=== PATIENT | male | born 1935 | race Caucasian/White ===

== ENCOUNTER 2022-02-18 13:11 | Emergency (ER) | payer MEDICARE, MEDICAID ==
[~2022-02-18] VITALS: Ht 162.5 cm; Wt 53.1 kg
--- NOTE | 2022-02-18 13:24 | ED Upper Extremity ---
General Chief Complaint: Upper Extremity Stated Complaint: LT SHOULDER PAIN Source: patient Exam Limitations: no limitations History of Present Illness Date Seen by Provider: February 18, 2022 Time Seen by Provider: 13:13 Initial Comments 86-year-old male with no significant past medical history coming in due to left shoulder pain for a couple days, worse this morning. He denies falling or any trauma. Says it is worse with movement and better with rest. The pain is constant, severe, sharp. Has not tried any medicines as of yet. Has never had pain like this before. He is otherwise denying any other acute complaints Allergies and Home Medications Allergies Coded Allergies: No Known Drug Allergies (Unverified , 02/18/22) Patient Home Medication List Home Medication List Reviewed: Yes Review of Systems Constitutional: No chills, No fever EENTM: No blurred vision Respiratory: no symptoms reported Cardiovascular: no symptoms reported Gastrointestinal: no symptoms reported Genitourinary: no symptoms reported Musculoskeletal: joint pain Skin: no symptoms reported Psychiatric/Neurological: No Symptoms Reported All Other Systems Reviewed Negative Unless Noted: Yes Past Dibvkiv-Ozctsi-Xfgibg Hx Patient Social History Tobacco Use?: No Substance use?: No Alcohol Use?: No Past Medical History Surgeries: Yes (right leg orthopedic) Physical Exam Vital Signs Vital Signs - First Documented 02/18/22 13:15 Temp 36.1 Pulse 95 Resp 18 B/P (MAP) 191/91 (124) Pulse Ox 96 O2 Delivery Room Air Capillary Refill : Height, Weight, BMI Height: '" Weight: lbs. oz. kg; BMI Method: General Appearance: WD/WN, no apparent distress HEENT: PERRL/EOMI, normal ENT inspection, pharynx normal Neck: non-tender, full range of motion, supple, normal inspection Cardiovascular: regular rate, rhythm, no edema, no murmur Respiratory: chest non-tender, lungs clear, normal breath sounds, no respiratory distress, no accessory muscle use Gastrointestinal: normal bowel sounds, non tender, soft; No distended, No guarding, No rebound Back: normal inspection, no CVA tenderness, no vertebral tenderness Shoulder: pain (Left shoulder with some old bruising, swelling, tenderness, decreased range of motion actively and passively, normal neurovascular exam distal to the injury), swelling Elbow/Forearm: normal inspection, non-tender, no evidence of injury, normal ROM Wrist: Yes normal inspection, Yes non-tender, Yes no evidence of injury, Yes normal ROM Hand: normal inspection, non-tender, no evidence of injury, normal ROM Neurologic/Tendon: normal sensation, normal motor functions, normal tendon fu nctions Neurologic/Psychiatric: underwriter II-XII nml as tested, no motor/sensory deficits, alert, normal mood/affect, oriented x 3 Skin: normal color, warm/dry Lymphatic: no adenopathy Progress/Results/Core Measures Results/Orders My Orders Orders - BEBA WHITT MD Hydrocodone/Apap 5/325 Tablet (Lortab 5 (02/18/22 13:30) Shoulder 3 View Left (02/18/22 13:24) Medications Given in ED Current Medications Medications Dose Ordered Sig/Amalia Route Start Time Stop Time Status Last Admin Dose Admin Acetaminophen/ Hydrocodone Bitart 1 ea ONCE ONCE PO 02/18/22 13:30 02/18/22 13:31 DC 02/18/22 13:32 1 EA Vital Signs/I&O 02/18/22 13:15 Temp 36.1 Pulse 95 Resp 18 B/P (MAP) 191/91 (124) Pulse Ox 96 O2 Delivery Room Air Progress Progress Note : Progress Note 86-year-old male with above history coming in due to nontraumatic left shoulder pain. ABCs were intact and vitals were stable on presentation. His left shoulder did appear slightly deformed with a high riding humeral head on exam. Decreased range of motion especially with significant pain. Normal neurovascular exam. X-ray with chronic and severe arthritic changes in the glenohumeral joint as well as the AC joint with high riding humeral head consistent with rotator cuff tear which is chronic. I will refer him to Ortho to discuss options such as injections or replacement. I believe he is stable for discharge with outpatient follow-up. He was sent home with strict return precautions Diagnostic Imaging Diagonstic Imaging: Xray (left shoulder) Comments [facility] [place], [place] NAME: OBEDSATISHGIRISH [facility] REC#: [id number] PT STATUS: REG ER : 1935 PHYSICIAN: BEBA WHITT MD ADMIT DATE: 02/18/22/ER FS Signed Date of Exam:02/18/22 SHOULDER 3 VIEW LEFT INDICATION: Pain. Shoulder deformity. No reported injury. FINDINGS: The left shoulder demonstrates a high riding humeral head suggesting a chronic rotator cuff tear. There is advanced arthritic change and ossification about the acromioclavicular joint. There appears to be a large osteophyte extending off of the inferior aspect of the glenoid. The bones are osteopenic. There is no identified fracture. The visualized lungs demonstrate no acute process. IMPRESSION: Severe left acromioclavicular joint and glenohumeral joint arthritic changes with a high riding humeral head compatible with chronic rotator cuff tear. There are no findings of dislocation or acute fracture. Dictated by: Dictated on workstation # [id number] Dict: 02/18/22 1403 Trans: 02/18/22 1410 [facility] [id number] Interpreted by: REINALDO LAYTON MD Electronically signed by: REINALDO LAYTON MD 02/18/22 1410 Departure Impression Primary Impression: Shoulder arthritis Additional Impression: Rotator cuff tear Qualified Codes: M75.122 - Complete rotator cuff tear or rupture of left shoulder, not specified as traumatic Disposition: 01 HOME, SELF-CARE Condition: Stable Departure-Patient Inst. Decision time for Depature: 14:16 Referrals: NO,LOCAL PHYSICIAN (PCP/Family) Primary Care Physician Patient Instructions: Rotator Cuff Injury Add. Discharge Instructions: You have severe arthritis in your shoulder which is caused a tear in her rotator cuff. I want you to follow-up with Donal Cruz here in [facility] who is a bone specialist. He can discuss giving injections versus referring you for a shoulder replacement. Shoulder replacement is the only definitive management for what you have. Take Tylenol for pain and you can also ice it or heat, whichever feels better. Scripts Oxycodone HCl (Oxycodone HCl) 5 Mg Tablet 5 MG PO HS PRN for PAIN-SEVERE (8-10) for 3 Days, #3 TAB Prov: BEBA WHITT MD 02/18/22 Acetaminophen (Tylenol Extra Strength) 500 Mg Tablet 1000 MG PO Q6H for 7 Days, #56 TAB Prov: BEBA WHITT MD 02/18/22 BEBA WHITT MD February 18, 2022 13:24
[2022-02-18] MEDS ORDERED: HYDROcodone/APAP 5 MG/325 MG (LORTAB) TAB PO ONE (13:30)
--- NOTE | 2022-02-18 14:09 | Diagnostic Imaging Report ---
INDICATION: Pain. Shoulder deformity. No reported injury. FINDINGS: The left shoulder demonstrates a high riding humeral head suggesting a chronic rotator cuff tear. There is advanced arthritic change and ossification about the acromioclavicular joint. There appears to be a large osteophyte extending off of the inferior aspect of the glenoid. The bones are osteopenic. There is no identified fracture. The visualized lungs demonstrate no acute process. IMPRESSION: Severe left acromioclavicular joint and glenohumeral joint arthritic changes with a high riding humeral head compatible with chronic rotator cuff tear. There are no findings of dislocation or acute fracture. Dictated by: Dictated on workstation # [id number]
[2022-02-18] MEDS ORDERED: ACET-2267 PO (14:20)
[2022-02-18] MEDS ORDERED: OXYC5TAB PO (14:20)
[2022-02-18 14:25] VITALS: BP 187/85
== END 2022-02-18 14:25 | disposition home or self-care (01) ==
LOC: ER FS 13:13
DX: M75.122 Complete rotator cuff tear or rupture of left shoulder, not specified as traumatic (principal); M19.012 Primary osteoarthritis, left shoulder
CPT/HCPCS: 73030; 99282; A4565

== ENCOUNTER 2022-09-26 15:48 | Emergency (ER) | payer MEDICARE, MEDICAID ==
[~2022-09-26 15:48] MED LIST: ACET-2267 PO; OXYC5TAB PO
--- NOTE | 2022-09-26 16:00 | ED Syncope ---
General Stated Complaint: SYNCOPAL EPISODE Source of Information: Patient, EMS Exam Limitations: No Limitations History of Present Illness Date Seen by Provider: Sep 26, 2022 Time Seen by Provider: 15:50 Initial Comments 87-year-old male presents via EMS for a syncopal episode. He resides at a local assisted/nursing facility and got up to walk with his walker to get some exercise and had a syncopal episode. Staff heard him fall down and by the time they got to him he was awake. The patient himself states he remembers the event and had no preceding chest pain, shortness of breath, palpitations, dizziness lightheadedness nausea vomiting or diaphoresis. 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 No dysarthria headaches or changes in vision. He feels back to normal at present. His vital signs were stable during EMS transport and his blood sugar was in the 80s. Allergies and Home Medications Allergies Coded Allergies: No Known Drug Allergies (Unverified , 02/18/22) Patient Home Medication List Home Medication List Reviewed: Yes Acetaminophen (Tylenol Extra Strength) 500 Mg Tablet, 1,000 MG PO Q6H Prescribed by: BEBA WHITT on 02/18/22 1420 Oxycodone HCl (Oxycodone HCl) 5 Mg Tablet, 5 MG PO HS PRN for PAIN-SEVERE (8-10) Prescribed by: BEBA WHITT on 02/18/22 1421 Review of Systems Constitutional: no symptoms reported EENTM: no symptoms reported Respiratory: no symptoms reported Cardiovascular: syncope Gastrointestinal: no symptoms reported Genitourinary: no symptoms reported Musculoskeletal: no symptoms reported Skin: no symptoms reported Psychiatric/Neurological: No Symptoms Reported Past Hldtlul-Otgzsa-Jnrqjp Hx Patient Social History Tobacco Use?: No Use of E-Cig and/or Vaping dev: No Substance use?: No Alcohol Use?: No Immunizations Up To Date First/Initial COVID19 Vaccinat: Not currently vaccinated Past Medical History Surgery/Hospitalization HX: Orthopedic surgery to right leg. Surgeries: Yes (right leg orthopedic) Family Medical History Reviewed Nursing Family Hx No Pertinent Family Hx Physical Exam Vital Signs Vital Signs - First Documented 09/26/22 15:51 Temp 36.6 Pulse 75 Resp 18 B/P (MAP) 146/73 (97) Pulse Ox 98 O2 Delivery Room Air Capillary Refill : Height, Weight, BMI Height: '" Weight: lbs. oz. kg; 20.00 BMI Method: General Appearance: No Apparent Distress, WD/WN HEENT: PERRL/EOMI, TMs Normal, Normal ENT Inspection, Pharynx Normal Neck: Full Range of Motion, Normal Inspection, Non Tender, Supple Cardiovascular: Regular Rate, Rhythm, No Edema, No Gallop, No JVD, No Murmur, Normal Peripheral Pulses Respiratory: Chest Non Tender, Lungs Clear, Normal Breath Sounds, No Accessory Muscle Use, No Respiratory Distress Gastrointestinal: Normal Bowel Sounds, No Organomegaly, No Pulsatile Mass, Non Tender, Soft Back: Normal Inspection, No Vertebral Tenderness Extremities: Normal Capillary Refill, Normal Inspection, Normal Range of Motion, Non Tender, No Calf Tenderness, No Pedal Edema Neurologic/Psychiatric: Alert, Oriented x3, Normal Mood/Affect, operations support specialist II-XII Norm as Tested, Other (Mild left-sided arm and leg weakness.) Cranial Nerves: Other (Patient is hard of hearing at baseline) Coordination/Gait: Normal Finger to Nose Motor/Sensory: No Sensory Deficit Skin: Normal Color, Warm/Dry Progress/Results/Core Measures Results/Orders Lab Results Laboratory Tests Test 09/26/22 15:55 Range/Units White Blood Count 10.8 4.3-11.0 10^3/uL Red Blood Count 3.02 L 4.30-5.52 10^6/uL Hemoglobin 10.2 L 13.3-17.7 g/dL Hematocrit 30 L 40-54 % Mean Corpuscular Volume 100 H 80-99 fL Mean Corpuscular Hemoglobin 34 25-34 pg Mean Corpuscular Hemoglobin Concent 34 32-36 g/dL Red Cell Distribution Width 14.4 10.0-14.5 % Platelet Count 272 130-400 10^3/uL Mean Platelet Volume 10.7 9.0-12.2 fL Immature Granulocyte % (Auto) 1 % Neutrophils (%) (Auto) 62 42-75 % Lymphocytes (%) (Auto) 19 12-44 % Monocytes (%) (Auto) 15 H 0-12 % Eosinophils (%) (Auto) 2 0-10 % Basophils (%) (Auto) 1 0-10 % Neutrophils # (Auto) 6.7 1.8-7.8 10^3/uL Lymphocytes # (Auto) 2.0 1.0-4.0 10^3/uL Monocytes # (Auto) 1.6 H 0.0-1.0 10^3/uL Eosinophils # (Auto) 0.3 0.0-0.3 10^3/uL Basophils # (Auto) 0.1 0.0-0.1 10^3/uL Immature Granulocyte # (Auto) 0.1 0.0-0.1 10^3/uL Sodium Level 136 135-145 MMOL/L Potassium Level 3.9 3.6-5.0 MMOL/L Chloride Level 101 98-107 MMOL/L Carbon Dioxide Level 25 21-32 MMOL/L Anion Gap 10 5-14 MMOL/L Blood Urea Nitrogen 28 H 7-18 MG/DL Creatinine 0.87 0.60-1.30 MG/DL Estimat Glomerular Filtration Rate 84 BUN/Creatinine Ratio 32 Glucose Level 102 70-105 MG/DL Calcium Level 8.6 8.5-10.1 MG/DL Corrected Calcium 8.6 8.5-10.1 MG/DL Magnesium Level 2.2 1.6-2.4 MG/DL Total Bilirubin 0.2 0.1-1.0 MG/DL Aspartate Amino Transf (AST/SGOT) 19 5-34 U/L Alanine Aminotransferase (ALT/SGPT) 12 0-55 U/L Alkaline Phosphatase 141 H 40-136 U/L Total Protein 7.0 6.4-8.2 GM/DL Albumin 4.0 3.2-4.5 GM/DL My Orders Orders - LAZARUS KATZ DO Cbc With Automated Diff (09/26/22 15:55) Magnesium (09/26/22 15:55) Comprehensive Metabolic Panel (09/26/22 15:55) Ekg Tracing (09/26/22 15:55) Vital Signs/I&O 09/26/22 15:51 Temp 36.6 Pulse 75 Resp 18 B/P (MAP) 146/73 (97) Pulse Ox 98 O2 Delivery Room Air EKG : Comment Sinus rhythm with first-degree AV block with [place] interval of 223. Normal intervals otherwise. Specifically QTC and QRS are normal. Left axis deviation. Right bundle branch block. No ST or T wave abnormalities. No ectopy. No STEMI Departure Communication (Admissions) The patient is hemodynamically stable and completely asymptomatic at the time of arrival. This is a brief syncopal episode without any focal neurologic deficits or evidence of emergent medical condition at this time. There is no evidence for dysrhythmia, hypoglycemia or other electrolyte abnormality. He does not have any new neurologic deficits to make me think that this was related to a stroke. No evidence for infectious cause, dehydration. He is discharged home in stable condition with supportive care. He does have close supervision at the nursing facility where he resides Impression Primary Impression: Syncope Qualified Codes: R55 - Syncope and collapse Disposition: 01 HOME, SELF-CARE Condition: Stable Departure-Patient Inst. Referrals: NO,LOCAL PHYSICIAN (PCP/Family) Primary Care Physician Patient Instructions: Syncope (Fainting) (DC) Add. Discharge Instructions: You were seen in the emergency department after passing out. There is no indication that this was from your heart, lungs or other emergency condition. Your electrolytes, blood counts are all normal and your exam is reassuring. Ple ase follow-up with your primary doctor for any nonemergent needs. Return to the emergency department for any severe concerns, specifically if you have chest pain, changes in vision or severe headache, new weakness in your arms or legs or if your symptoms change in any way concerning to you LAZARUS KATZ DO Sep 26, 2022 16:00
[2022-09-26 16:04] LABS: BASOPHILS # (AUTO) 0.1 10^3/uL (0.0-0.1); BASOPHILS % (AUTO) 1 % (0-10); EOSINOPHILS # (AUTO) 0.3 10^3/uL (0.0-0.3); EOSINOPHILS % (AUTO) 2 % (0-10); HEMATOCRIT 30 % (40-54); HEMOGLOBIN 10.2 g/dL (13.3-17.7); LYMPHOCYTES % (AUTO) 19 % (12-44); MEAN CORPUSCULAR HEMOGLOBIN 34 pg (25-34); MEAN CORPUSCULAR HGB CONC 34 g/dL (32-36); MEAN CORPUSCULAR VOLUME 100 fL (80-99); MEAN PLATELET VOLUME 10.7 fL (9.0-12.2); MONOCYTES # (AUTO) 1.6 10^3/uL (0.0-1.0); MONOCYTES % (AUTO) 15 % (0-12); NEUTROPHILS # (AUTO) 6.7 10^3/uL (1.8-7.8); NEUTROPHILS % (AUTO) 62 % (42-75); PLATELET COUNT 272 10^3/uL (130-400); WHITE BLOOD COUNT 10.8 10^3/uL (4.3-11.0)
[2022-09-26 16:25] LABS: BILIRUBIN,TOTAL 0.2 MG/DL (0.1-1.0); CALCIUM 8.6 MG/DL (8.5-10.1); CREATININE SERUM 0.87 MG/DL (0.60-1.30); MAGNESIUM 2.2 MG/DL (1.6-2.4); POTASSIUM 3.9 MMOL/L (3.6-5.0)
[2022-09-26 16:55] VITALS: BP 145/73
== END 2022-09-26 16:55 | disposition home or self-care (01) ==
LOC: EDUNIT# 15:48 → ER FS 15:49
DX: R55 Syncope and collapse (principal); Z28.310 Unvaccinated for COVID-19
CPT/HCPCS: 36415; 80053; 83735; 85025; 93005

== ENCOUNTER 2023-04-08 10:48 | Inpatient (IN) | payer MEDICARE, MEDICAID ==
[~2023-04-08] VITALS: Ht 162.5 cm; Wt 49.7 kg
--- NOTE | 2023-04-08 11:16 | ED Cardiac General ---
History of Present Illness General Chief Complaint: General Problems/Pain Stated Complaint: DIZZINESS; SYNCOPAL EPISODE History of Present Illness Date Seen by Provider: Apr 08, 2023 Time Seen by Provider: 11:00 Initial Comments 88-year-old male with PMH of CVA few years ago without any obvious resident deficits, not on any medications except for vitamins, is here with complaints of syncope which has been going on intermittently for the past few weeks. In the past 1 week the number of episodes of syncope has been more frequent, with the very last 1 being today morning. Patient describes it as feeling lightheaded and then blacking out for a few seconds, and this can occur whether he is sitting down or standing up. Patient's sister has accompanied him to the ER, and reports that patient only eats 1 meal a day and does not drink much liquids at all. Patient is hard of hearing and has not brought his hearing aid with him. In the ER patient does not feel lightheaded or dizzy. Patient is able to answer all questions and follow commands without any difficulty, and also able to give a good history. Denies chest pain, palpitations, shortness of breath, weakness, confusion, headache, blurry vision, injuries, nausea and vomiting, abdominal pain. Patient denies any cardiac issues in the past. Allergies and Home Medications Allergies Coded Allergies: No Known Drug Allergies (Unverified , 02/18/22) Patient Home Medication List Home Medication List Reviewed: Yes Acetaminophen (Tylenol Extra Strength) 500 Mg Tablet, 1,000 MG PO Q6H Prescribed by: BEBA WHITT on 02/18/22 1420 Oxycodone HCl (Oxycodone HCl) 5 Mg Tablet, 5 MG PO HS PRN for PAIN-SEVERE (8-10) Prescribed by: BEBA WHITT on 02/18/22 1421 Review of Systems Review of Systems Constitutional: see HPI, dizziness EENTM: No Symptoms Reported Respiratory: No Symptoms Reported Cardiovascular: See HPI, Lightheadedness, Syncope Gastrointestinal: No Symptoms Reported Genitourinary: No Symptoms Reported Musculoskeletal: no symptoms reported Skin: no symptoms reported Psychiatric/Neurological: No Symptoms Reported Endocrine: No Symptoms Reported Hematologic/Lymphatic: No Symptoms Reported Past Mmvwoud-Rlqsse-Zmmpjq Hx Immunizations Up To Date First/Initial COVID19 Vaccinat: Not currently vaccinated Second COVID19 Vaccination Faizan: Not currently vaccinated Third COVID19 Vaccination Date: Not currently vaccinated Past Medical History Surgery/Hospitalization HX: Orthopedic surgery to right leg; CVA Surgeries: Yes (right leg orthopedic) Family Medical History No Pertinent Family Hx Physical Exam Vital Signs Vital Signs - First Documented 04/08/23 11:25 Temp 36.4 Pulse 36 Resp 16 B/P (MAP) 138/46 (76) Pulse Ox 99 O2 Delivery Room Air Capillary Refill : Height, Weight, BMI Height: '" Weight: lbs. oz. kg; 20.00 BMI Method: General Appearance: No Apparent Distress, WD/WN HEENT: PERRL/EOMI Neck: Full Range of Motion, Normal Inspection Respiratory: Chest Non Tender, Lungs Clear, Normal Breath Sounds, No Accessory Muscle Use Cardiovascular: No Edema, Bradycardia Gastrointestinal: Normal Bowel Sounds, Non Tender, Soft Extremity: Normal Inspection, Normal Range of Motion Neurologic/Psychiatric: Alert, Oriented x3, No Motor/Sensory Deficits, Normal Mood/Affect, health care coordinator II-XII Norm as Tested Skin: Normal Color Progress/Results/Core Measures Results/Orders Lab Results Laboratory Tests Test 04/08/23 11:02 04/08/23 11:12 Range/Units Urine Color YELLOW Urine Clarity CLEAR Urine pH 6.5 5-9 Urine Specific Sandy <=1.005 1.016-1.022 Urine Protein TRACE H NEGATIVE Urine Glucose (UA) NEGATIVE NEGATIVE Urine Ketones NEGATIVE NEGATIVE Urine Nitrite NEGATIVE NEGATIVE Urine Bilirubin NEGATIVE NEGATIVE Urine Urobilinogen 0.2 < = 1.0 MG/DL Urine Leukocyte Esterase NEGATIVE NEGATIVE Urine RBC (Auto) NEGATIVE NEGATIVE Urine RBC 0-2 /HPF Urine WBC 10-25 H /HPF Urine Squamous Epithelial Cells 2-5 /HPF Urine Crystals NONE /LPF Urine Bacteria FEW H /HPF Urine Casts PRESENT /LPF Urine Hyaline Casts RARE /LPF Urine Mucus SMALL H /LPF Urine Culture Indicated YES White Blood Count 12.3 H 4.3-11.0 10^3/uL Red Blood Count 3.31 L 4.30-5.52 10^6/uL Hemoglobin 11.2 L 13.3-17.7 g/dL Hematocrit 34 L 40-54 % Mean Corpuscular Volume 102 H 80-99 fL Mean Corpuscular Hemoglobin 34 25-34 pg Mean Corpuscular Hemoglobin Concent 33 32-36 g/dL Red Cell Distribution Width 14.6 H 10.0-14.5 % Platelet Count 249 130-400 10^3/uL Mean Platelet Volume 11.3 9.0-12.2 fL Immature Granulocyte % (Auto) 1 % Neutrophils (%) (Auto) 83 H 42-75 % Lymphocytes (%) (Auto) 10 L 12-44 % Monocytes (%) (Auto) 5 0-12 % Eosinophils (%) (Auto) 0 0-10 % Basophils (%) (Auto) 1 0-10 % Neutrophils # (Auto) 10.2 H 1.8-7.8 10^3/uL Lymphocytes # (Auto) 1.2 1.0-4.0 10^3/uL Monocytes # (Auto) 0.6 0.0-1.0 10^3/uL Eosinophils # (Auto) 0.0 0.0-0.3 10^3/uL Basophils # (Auto) 0.2 H 0.0-0.1 10^3/uL Immature Granulocyte # (Auto) 0.1 0.0-0.1 10^3/uL Prothrombin Time 14.0 12.2-14.7 SEC INR Comment 1.0 0.8-1.4 Activated Partial Thromboplast Time 26 24-35 SEC D-Dimer 1.80 H 0.00-0.49 UG/ML Sodium Level 134 L 135-145 MMOL/L Potassium Level 4.3 3.6-5.0 MMOL/L Chloride Level 100 98-107 MMOL/L Carbon Dioxide Level 21 21-32 MMOL/L Anion Gap 13 5-14 MMOL/L Blood Urea Nitrogen 17 7-18 MG/DL Creatinine 0.91 0.60-1.30 MG/DL Estimat Glomerular Filtration Rate 81 BUN/Creatinine Ratio 19 Glucose Level 136 H 70-105 MG/DL Calcium Level 9.3 8.5-10.1 MG/DL Corrected Calcium 9.2 8.5-10.1 MG/DL Magnesium Level 2.1 1.6-2.4 MG/DL Total Bilirubin 0.5 0.1-1.0 MG/DL Aspartate Amino Transf (AST/SGOT) 20 5-34 U/L Alanine Aminotransferase (ALT/SGPT) 12 0-55 U/L Alkaline Phosphatase 116 40-136 U/L Troponin I < 0.30 <0.30 NG/ML Pro-B-Type Natriuretic Peptide 729.2 H <450.0 PG/ML Total Protein 7.1 6.4-8.2 GM/DL Albumin 4.1 3.2-4.5 GM/DL My Orders Orders - MANFRED CAMPOS MD Chest 1 View Ap/Pa Only (04/08/23 11:16) Ekg Tracing (04/08/23 11:17) Cbc With Automated Diff (04/08/23 11:17) Comprehensive Metabolic Panel (04/08/23 11:17) Fibrin Degradation Products (04/08/23 11:17) Magnesium (04/08/23 11:17) Protime With Inr (04/08/23 11:17) Partial Thromboplastin Time (04/08/23 11:17) Ua Culture If Indicated (04/08/23 11:17) Probnp Fs (04/08/23 11:17) Troponin I Fs (04/08/23 11:17) Ed Iv/Invasive Line Start (04/08/23 11:20) Ns Iv 1000 Ml (Sodium Chloride 0.9%) (04/08/23 11:30) Urine Culture (04/08/23 11:02) Ct Angio Chest W (04/08/23 11:35) Ct Head Wo (04/08/23 11:35) Iohexol Injection (Omnipaque 350 Mg/Ml 1 (04/08/23 11:45) Received Contrast (Hold Metformin- Contr (04/08/23 11:45) Ns (Ivpb) (Sodium Chloride 0.9% Ivpb Bag (04/08/23 11:45) Ed Admission (Communication) (04/08/23 11:52) Atropine Inj 1 Mg Syringe (Atropine Inj (04/08/23 12:00) Atropine Injection (Atropine Injection) (04/08/23 11:59) Medications Given in ED Current Medications Medications Dose Ordered Sig/Amalia Route Start Time Stop Time Status Last Admin Dose Admin Atropine Sulfate 0.5 mg ONCE ONCE IV 04/08/23 12:00 04/08/23 12:15 DC 04/08/23 12:02 0.5 MG Iohexol 100 ml ONCE ONCE IV 04/08/23 11:45 04/08/23 11:46 DC 04/08/23 12:00 80 ML Sodium Chloride 100 ml ONCE ONCE IV 04/08/23 11:45 04/08/23 11:46 DC 04/08/23 12:00 100 ML Vital Signs/I&O 04/08/23 11:25 Temp 36.4 Pulse 36 Resp 16 B/P (MAP) 138/46 (76) Pulse Ox 99 O2 Delivery Room Air Progress Progress Note : Progress Note 1. THIRD DEGREE HEART BLOCK CAUSING SYNCOPE: - CT HEAD: No acute findings - CXR: Nodular density overlying the right midlung, potentially related to pulmonary nodule versus overlying soft tissues. Recommend CT of the chest for further evaluation. - EKrd degree heart block - CBC: White count is borderline at 12.3, with no obvious sources of infection -CMP & UA: unremarkable -Troponin undetectable - NS IVF -Patient has remained asymptomatic in the ER, and is AO x3, answering all questions and following all commands, without any neurological deficits. - Discussed with hospitalist and cardiology consult via phone and will admit to [facility] cardiac step down for admission. Cardiology recommendation of trial dose of Atropine 0.5mg given in ER, which didn't change the heart rate. 2. ELEVATED D-DIMER:PULMONARY NODULE - D-dimer is 1.80 - CTA CHEST: Negative for pulmonary emboli. Solid pulmonary nodule in the right upper lobe measuring up to 0.7 cm. There is also a nonsolid pulmonary nodule in the right upper lobe measuring up to 1.5 cm which could be infectious/inflammatory. No lymphadenopathy. Recommend followup with chest CT in one month. Initial ECG Impression Date: Apr 08, 2023 Initial ECG Impression Time: 11:10 Initial ECG Rate: 35 Initial ECG Rhythm: S.Rich Initial ECG Impression: Sinus Bradycardia, 3rd Degree AV Block Initial ECG Comparisson: No Previous ECG Available Diagnostic Imaging Diagonstic Imaging: Xray, CT Plain Films/CT/US/NM/MRI: chest, head Comments [facility], [place] NAME: GIRISH CANO Daniel [facility] REC#: [id number] PT STATUS: REG ER : 1935 PHYSICIAN: MANFRED CAMPOS MD ADMIT DATE: 04/08/23/ER FS Draft Date of Exam:04/08/23 CT ANGIO CHEST W PROCEDURE: CT angiography of the chest with contrast. TECHNIQUE: Multiple contiguous axial images were obtained through the chest after uneventful bolus administration of intravenous contrast. 3D reconstructed CTA MIP acquisitions were also performed. Auto Exposure Controls were utilized during the CT exam to meet ALARA standards for radiation dose reduction. INDICATION: Syncope. Elevated D-dimer. Bradycardia. COMPARISON: Chest radiograph 04/08/2023. FINDINGS: Examination mildly limited by motion. No pulmonary artery filling defects. Borderline heart size. No pericardial effusion. No mediastinal, hilar or axillary lymphadenopathy. Pulmonary nodule right upper lobe measuring up to 0.7 cm. There is also a nonsolid nodule measuring up to 1.5 cm. No pleural effusion or pneumothorax. No endobronchial lesions. No acute osseous findings. Calcified granulomas in the spleen. IMPRESSION: 1. No pulmonary emboli. 2. Solid pulmonary nodule in the right upper lobe measuring up to 0.7 cm. There is also a nonsolid pulmonary nodule in the right upper lobe measuring up to 1.5 cm which could be infectious/inflammatory. No lymphadenopathy. Recommend followup with chest CT in one month. Dictated on workstation # [id number] Dict: 04/08/23 1205 Trans: 04/08/[address] [facility] [id number] Interpreted by: KEMAL RAMOS MD Electronically signed by: [facility] [place] NAME: GIRISH CANO [facility] REC#: [id number] PT STATUS: REG ER : 1935 PHYSICIAN: MANFRED CAMPOS MD ADMIT DATE: 04/08/23/ER FS Draft Date of Exam:04/08/23 CHEST 1 VIEW AP/PA ONLY INDICATION: Bradycardia COMPARISON: None available TECHNIQUE: Single radiograph of the chest dated 04/08/2023. FINDINGS: The cardiac silhouette is within normal limits in size. No significant pulmonary vascular congestion. Background senescent changes of the lungs are identified. Nodular density within the peripheral right midlung is present. No significant pleural effusion. No pneumothorax. Scattered osseous degenerative changes. No acute osseous abnormality. Calcifications within the aortic arch. IMPRESSION: Nodular density overlying the right midlung, potentially related to pulmonary nodule versus overlying soft tissues. Recommend CT of the chest for further evaluation. At the time of examination, a CT of the chest has been performed. Additional findings as described above without additional superimposed acute cardiopulmonary abnormality. Dictated on workstation # [id number] Dict: 04/08/23 1208 Trans: 04/08/237 CVB [id number] Interpreted by: VICTOR MANUEL SHULTZ MD Electronically signed by: NAME: GIRISH CANO [facility] REC#: [id number] PT STATUS: REG ER : 1935 PHYSICIAN: MANFRED CAMPOS MD ADMIT DATE: 04/08/23/ER FS Draft Date of Exam:04/08/23 CT HEAD WO PROCEDURE: CT head without contrast. TECHNIQUE: Multiple contiguous axial images were obtained through the brain without the use of intravenous contrast. Auto Exposure Controls were utilized during the CT exam to meet ALARA standards for radiation dose reduction. INDICATION: Syncope. Bradycardia. COMPARISON: None. FINDINGS: Moderate to advanced generalized parenchymal volume loss. No intracranial hemorrhage, mass effect, hydrocephalus or extra-axial fluid collections. No CT evidence of a territorial infarction. Osseous structures are intact. Opacification and osteitis of the left maxillary sinus. Mastoids are clear. Intracranial vascular calcifications. IMPRESSION: 1. No acute intracranial CT findings. 2. Chronic left maxillary sinusitis. Dictated on workstation # [id number] Dict: 04/08/23 1202 Trans: 04/08/23 1212 CVB [id number] Interpreted by: KEMAL RAMOS MD Electronically signed by: Departure Communication (Admissions) Time/Spoke to Admitting Phy: 11:[address] Eaton, and will admit to cardiac stepdown. Time/Spoke to Consulting Phy: 11:[address] García, and will give a dose of atropine 0.5 mg to see if it makes a difference. Patient is asymptomatic in the ER. Impression Primary Impression: Third degree heart block Additional Impressions: Syncope Qualified Codes: R55 - Syncope and collapse Elevated d-dimer Disposition: 30 STILL A PATIENT Condition: Stable Admissions Decision to Admit Reason: Admit from ER (General) Decision to Admit/Date: Apr 08, 2023 Time/Decision to Admit Time: 11:10 Transfer Method of Transfer: EMS Departure-Patient Inst. Referrals: NO,LOCAL PHYSICIAN (PCP/Family) Primary Care Physician MANFRED CAMPOS MD Apr 08, 2023 11:16
[2023-04-08 11:23] LABS: BASOPHILS # (AUTO) 0.2 10^3/uL (0.0-0.1); BASOPHILS % (AUTO) 1 % (0-10); EOSINOPHILS % (AUTO) 0 % (0-10); HEMATOCRIT 34 % (40-54); HEMOGLOBIN 11.2 g/dL (13.3-17.7); LYMPHOCYTES # (AUTO) 1.2 10^3/uL (1.0-4.0); LYMPHOCYTES % (AUTO) 10 % (12-44); MEAN CORPUSCULAR HEMOGLOBIN 34 pg (25-34); MEAN CORPUSCULAR HGB CONC 33 g/dL (32-36); MEAN CORPUSCULAR VOLUME 102 fL (80-99); MEAN PLATELET VOLUME 11.3 fL (9.0-12.2); MONOCYTES # (AUTO) 0.6 10^3/uL (0.0-1.0); MONOCYTES % (AUTO) 5 % (0-12); NEUTROPHILS # (AUTO) 10.2 10^3/uL (1.8-7.8); NEUTROPHILS % (AUTO) 83 % (42-75); PLATELET COUNT 249 10^3/uL (130-400); WHITE BLOOD COUNT 12.3 10^3/uL (4.3-11.0)
[2023-04-08 11:24] LABS: BILIRUBIN,URINE NEGATIVE (NEGATIVE); CLARITY,URINE CLEAR; COLOR,URINE YELLOW; GLUCOSE, URINE (UA) NEGATIVE (NEGATIVE); KETONES,URINE NEGATIVE (NEGATIVE); LEUKOCYTE ESTERASE ,URINE NEGATIVE (NEGATIVE); NITRITE,URINE NEGATIVE (NEGATIVE); PH,URINE 6.5 (5-9); PROTEIN,URINE TRACE (NEGATIVE)
[2023-04-08 11:25] LABS: BACTERIA,URINE FEW /HPF; RBC,URINE 0-2 /HPF
[2023-04-08 11:26] LABS: HYALINE CASTS, URINE RARE /LPF
[2023-04-08] MEDS ORDERED: NS IV 1000 ML 1,000 ML IV SCH ×2 (11:30→19:00)
[2023-04-08 11:32] LABS: FIBRIN DEGRADATION PRODUCTS 1.8 UG/ML (0.00-0.49)
[2023-04-08 11:34] LABS: ALANINE AMINOTRANSFERASE 12 U/L (0-55); ALBUMIN 4.1 GM/DL (3.2-4.5); ALKALINE PHOSPHATASE 116 U/L (40-136); BILIRUBIN,TOTAL 0.5 MG/DL (0.1-1.0); BUN/CREATININE RATIO 19; CALCIUM 9.3 MG/DL (8.5-10.1); CARBON DIOXIDE 21 MMOL/L (21-32); CHLORIDE 100 MMOL/L (98-107); CREATININE SERUM 0.91 MG/DL (0.60-1.30); GFR ESTIMATED 81; GLUCOSE 136 MG/DL (70-105); MAGNESIUM 2.1 MG/DL (1.6-2.4); POTASSIUM 4.3 MMOL/L (3.6-5.0); SODIUM 134 MMOL/L (135-145); TOTAL PROTEIN 7.1 GM/DL (6.4-8.2)
[2023-04-08] MEDS ORDERED: NS 100 ML (IVPB) BAG IV ONE (11:45)
[2023-04-08] MEDS ORDERED: IOHEXOL 350 MG/ML 100 ML (OMNIPAQUE 350) VIAL IV ONE (11:45)
[2023-04-08] MEDS ORDERED: HOLD METFORMIN - RECEIVED CONTRAST 20 ML VIAL IV SCH (11:45)
[2023-04-08] MEDS ORDERED: ATROPINE INJ 0.4 MG/ML SDV ONE (11:59)
[2023-04-08] MEDS ORDERED: ATROPINE INJECTION 1 MG/10 ML SYR (ABBOTT) IV ONE (12:00)
--- NOTE | 2023-04-08 12:12 | Diagnostic Imaging Report ---
PROCEDURE: CT head without contrast. TECHNIQUE: Multiple contiguous axial images were obtained through the brain without the use of intravenous contrast. Auto Exposure Controls were utilized during the CT exam to meet ALARA standards for radiation dose reduction. INDICATION: Syncope. Bradycardia. COMPARISON: None. FINDINGS: Moderate to advanced generalized parenchymal volume loss. No intracranial hemorrhage, mass effect, hydrocephalus or extra-axial fluid collections. No CT evidence of a territorial infarction. Osseous structures are intact. Opacification and osteitis of the left maxillary sinus. Mastoids are clear. Intracranial vascular calcifications. IMPRESSION: 1. No acute intracranial CT findings. 2. Chronic left maxillary sinusitis. Dictated by: Dictated on workstation # [id number]
--- NOTE | 2023-04-08 12:17 | Diagnostic Imaging Report ---
INDICATION: Bradycardia COMPARISON: None available TECHNIQUE: Single radiograph of the chest dated 04/08/2023. FINDINGS: The cardiac silhouette is within normal limits in size. No significant pulmonary vascular congestion. Background senescent changes of the lungs are identified. Nodular density within the peripheral right midlung is present. No significant pleural effusion. No pneumothorax. Scattered osseous degenerative changes. No acute osseous abnormality. Calcifications within the aortic arch. IMPRESSION: Nodular density overlying the right midlung, potentially related to pulmonary nodule versus overlying soft tissues. Recommend CT of the chest for further evaluation. At the time of examination, a CT of the chest has been performed. Additional findings as described above without additional superimposed acute cardiopulmonary abnormality. Dictated by: Dictated on workstation # [id number]
--- NOTE | 2023-04-08 12:19 | Diagnostic Imaging Report ---
PROCEDURE: CT angiography of the chest with contrast. TECHNIQUE: Multiple contiguous axial images were obtained through the chest after uneventful bolus administration of intravenous contrast. 3D reconstructed CTA MIP acquisitions were also performed. Auto Exposure Controls were utilized during the CT exam to meet ALARA standards for radiation dose reduction. INDICATION: Syncope. Elevated D-dimer. Bradycardia. COMPARISON: Chest radiograph 04/08/2023. FINDINGS: Examination mildly limited by motion. No pulmonary artery filling defects. Borderline heart size. No pericardial effusion. No mediastinal, hilar or axillary lymphadenopathy. Pulmonary nodule right upper lobe measuring up to 0.7 cm. There is also a nonsolid nodule measuring up to 1.5 cm. No pleural effusion or pneumothorax. No endobronchial lesions. No acute osseous findings. Calcified granulomas in the spleen. IMPRESSION: 1. No pulmonary emboli. 2. Solid pulmonary nodule in the right upper lobe measuring up to 0.7 cm. There is also a nonsolid pulmonary nodule in the right upper lobe measuring up to 1.5 cm which could be infectious/inflammatory. No lymphadenopathy. Recommend followup with chest CT in one month. Dictated by: Dictated on workstation # [id number]
[2023-04-08 13:15] VITALS: BP 98/37
[2023-04-08] MEDS ORDERED: MELATONIN 3 MG TABLET PO PRN (13:30)
[2023-04-08] MEDS ORDERED: ACETAMINOPHEN 325 MG TABLET PO PRN ×2 (13:30→19:00)
[2023-04-08] MEDS ORDERED: ONDANSETRON 4 MG/2 ML (SDV) Z0FRAN IV PRN (13:30)
[2023-04-08] MEDS ORDERED: polyethylene glycoL POWDER 17 GM (MIRALAX) PACK PO PRN (13:30)
[2023-04-08] MEDS ORDERED: ANTACID SUSP 30 ML UDC (MYLANTA) PO PRN (13:30)
--- NOTE | 2023-04-08 14:58 | Tele-ICU Consult ---
History of Present Illness History of Present Illness Date Seen by Provider: Apr 08, 2023 Time Seen by Provider: 14:58 Date of Admission History of Present Illness (Tele-ICU Physician , consultation as per request of PCP Service provided via interactive audio and video telecomWorkstreamer E-CARE system to a patient admitted to ICU bed in [facility]. Available chart/ vitals / labs / Images reviewed H&P is from ER notes Patient's information available about PMH, Shx, Fhx allergy reviewed inEMR. ROS as per chart and RN report Now in ICU, hemodynamically stable Video assessment done using teleICU camera, rest of exam as per RN Discussed with RN. Hospital course: (04/08) 88M Admitted for complete heart block/syncope. Trial dose of atropine did not work in ER. Elevated Ddimer-CTA chest NEG for PE. CTH: NEG except chronic left maxillary sinusitis A/P Syncopy - due to arrhythmia - CTH - no bleed 3rd degree heart block - HR @ 20s - maintaing good BP ,asymptomatic AO x3, no neurological deficits - cards consulted Elevated Ddimer- -CTA chest NEG for PE. Mild leukocytosis - U A neg and cxr - no evidence of infection RUL pulm nodulles - w/up as PCP Lines : peripg , (Central Line Necessity Reviewed) Mercado: OG: Nutrition: Analgesia: Anxiety/ delirium VTE Prophylaxis: Stress Ulcer Prophylaxis: Plans in collaboration with bedside consultants and IM MDs. Discussed with RN to reach out if any questions or concerns A total of _10 minutes of critical care time was devoted to this patient today, required to treat and/or prevent further deterioration of critical care condition ( as above ) . I am remotely monitoring this patient from another state. I am unable to do the bedside exam, and history/physical and pertinent information is taken from other notes in the computer and bedside staff. . Allergies and Home Medications Allergies Coded Allergies: No Known Drug Allergies (Unverified , 02/18/22) Home Medications Acetaminophen 500 Mg Tablet, 1,000 MG PO Q6H Prescribed by: BEBA WHITT on 02/18/22 1420 Oxycodone HCl 5 Mg Tablet, 5 MG PO HS PRN for PAIN-SEVERE (8-10) Prescribed by: BEBA WHITT on 02/18/22 1421 Past Medical/Social/Family Hx Patient Social History Tobacco Use?: No Use of E-Cig and/or Vaping dev: No Substance use?: No Alcohol Use?: No Pt stated abuse/neglect: No Immunizations Up To Date First/Initial COVID19 Vaccinat: Not currently vaccinated Second COVID19 Vaccination Faizan: Not currently vaccinated Current Status Advance Directives: No Advance Directive Location: Family to bring in copy Communicates: Verbally Primary Language: Citizen Of [place] Preferred Spoken Language: Citizen Of [place] Is interpretation needed?: No Implanted or Applied Medical D: None Review of Systems Constitutional: other Focused Exam Height, Weight, BMI Height: '" Weight: lbs. oz. kg; 18.85 BMI Method: Exam Exam Patient acknowledged, consented, and participated in this virtual visit which was conducted using real time audio/video Vital Signs Date Time Temp Pulse Resp B/P (MAP) Pulse Ox O2 Delivery O2 Flow Rate FiO2 04/08/23 14:00 24 96/50 (65) 100 Room Air 04/08/23 13:50 24 16 101/51 (68) 98 Room Air 04/08/23 13:39 25 04/08/23 13:15 36.0 27 16 98/37 (57) 96 Room Air 04/08/23 12:19 36.4 27 16 95/34 100 Room Air 04/08/23 11:25 36.4 36 16 138/46 (76) 99 Room Air Height & Weight Height: '" Weight: lbs. oz. kg; 18.85 BMI Method: General Appearance: No Apparent Distress, WD/WN, Other HEENT: PERRL/EOMI Neck: Full Range of Motion, Normal Inspection Respiratory: Chest Non Tender, Lungs Clear, Normal Breath Sounds, No Accessory Muscle Use Cardiovascular: No Edema, Bradycardia Capillary Refill: Less Than 3 Seconds Extremity: Normal Inspection, Normal Range of Motion Neurologic/Psychiatric: Alert, Oriented x3, No Motor/Sensory Deficits, Normal Mood/Affect, head of sales promotion II-XII Norm as Tested Skin: Normal Color Results Lab Laboratory Tests 04/08/23 11:12 Assessment/Plan Assessment/Plan 1 EULALIO HERNANDEZ MD Apr 08, 2023 14:58
[2023-04-08 15:31] VITALS: BP 96/50
--- NOTE | 2023-04-08 15:35 | Consultation-Cardiology ---
HPI-Cardiology Cardiology Consultation: Date of Consultation 04/08/23 Time Seen by a Provider: 15:00 Date of Admission 04/08/23 Attending Physician Nikos Avila DO Admitting Physician Admitting Physician: Alda Damian MD Attending Physician: Alda Damian MD Consulting Physician NICHOLAS FENG MD, MA, FACP, FACC, FSCAI, CCDS Physician requesting Card consult: Dr Damian HPI: Chief Complaint: Reason for Card consult: Complete Heart Block 88 yo man who has been experiencing near-syncope for several days/weeks and was brought to the ER at [facility] by his sister today after a similar episode earlier today. Diagnosed with CHB and sent to this hosp for further eval and treatment. He denies cp or palp or shortness of breath or leg swelling. He denies n/v/d. Lives by himself. Denies fever or chills. Review of Systems-Cardiology Review of Systems Constitutional: malaise, tiredness; No weight loss, No weight gain Eyes: No vision change Ears/Nose/Throat: No ear discharge, No nasal drainage, No recent hearing loss Respiratory: As described under HPI Cardiovascular: As described under HPI Gastrointestinal: As described under HPI Genitourinary: No dysuria, No hematuria Musculoskeletal: back pain (chronic) Skin: No rash, No ulcerations Psychiatric/Neurological: As described under HPI, focal weakness (chronic weakness of leg, more on the R) Hematologic: No bleeding abnormalities LPE-Vtznuw-Zkgvtf Hx Patient Social History Alcohol Use?: No Pt feels they are or have been: No Past Medical History PMH As described under Assessment. Family Medical History Family Medical History: He does not report fam h/o early CAD or SCD Allergies and Home Medications Allergies Coded Allergies: No Known Drug Allergies (Unverified , 02/18/22) Patient Home Medication List Home Medication List Reviewed: Yes Acetaminophen (Tylenol Extra Strength) 500 Mg Tablet, 1,000 MG PO Q6H Prescribed by: BEBA WHITT on 02/18/22 1420 Oxycodone HCl (Oxycodone HCl) 5 Mg Tablet, 5 MG PO HS PRN for PAIN-SEVERE (8-10) Prescribed by: BEBA WHITT on 02/18/22 1421 Physical Exam-Cardiology Physical Exam Vital Signs/I&O 04/08/23 04/08/23 04/08/23 04/08/23 11:25 12:19 13:15 13:39 Temp 36.4 36.4 36.0 Pulse 36 27 27 25 Resp 16 16 16 B/P (MAP) 138/46 (76) 95/34 98/37 (57) Pulse Ox 99 100 96 O2 Delivery Room Air Room Air Room Air 04/08/23 04/08/23 04/08/23 13:50 14:00 15:00 Pulse 24 24 26 Resp 16 B/P (MAP) 101/51 (68) 96/50 (65) 104/84 (91) Pulse Ox 98 100 91 O2 Delivery Room Air Room Air Room Air Capillary Refill : Less Than 3 Seconds Constitutional: AAO x 3, well-developed, well-nourished HEENT: EOMI, hearing is well preserved; No xanthelasmas are seen Neck: carotid pulses are 2 + bilaterally, with good upstrokes Respiratory: No accessory muscle use; chest expansion is symmetric, chest is bilaterally symmetric, other (fair, bilat air entry) Cardiovascular: regular rate-rhythm, bradycardia, S1 and S2, systolic murmur (soft EMORY at card base) Gastrointestinal: No tender; soft; No guarding, No rebound; audible bowel sounds Extremities: No clubbing, No cyanosis, No significant edema Neurologic/Psychiatric: oriented x 3, other (weakness of legs, more on the L; walker by bedside) Skin: No rash on exposed areas, No ulcerations on exposed areas Data Review Labs Laboratory Tests 04/08/23 11:02: Urine Color YELLOW, Urine Clarity CLEAR, Urine pH 6.5, Urine Specific [place] <=1.005, Urine Protein TRACEH, Urine Glucose (UA) NEGATIVE, Urine Ketones NEGATIVE, Urine Nitrite NEGATIVE, Urine Bilirubin NEGATIVE, Urine Urobilinogen 0.2, Urine Leukocyte Esterase NEGATIVE, Urine RBC (Auto) NEGATIVE, Urine RBC 0- 2, Urine WBC 10-25H, Urine Squamous Epithelial Cells 2-5, Urine Crystals NONE, Urine Bacteria FEWH, Urine Casts PRESENT, Urine Hyaline Casts RARE, Urine Mucus SMALLH, Urine Culture Indicated YES 04/08/23 11:12: White Blood Count 12.3H, Red Blood Count 3.31L, Hemoglobin 11.2L, Hematocrit 34L , Mean Corpuscular Volume 102H, Mean Corpuscular Hemoglobin 34, Mean Corpuscular Hemoglobin Concent 33, Red Cell Distribution Width 14.6H, Platelet Count 249, Mean Platelet Volume 11.3, Immature Granulocyte % (Auto) 1, Neutrophils (%) (Auto) 83H, Lymphocytes (%) (Auto) 10L, Monocytes (%) (Auto) 5, Eosinophils (%) (Auto) 0, Basophils (%) (Auto) 1, Neutrophils # (Auto) 10.2H, Lymphocytes # (Auto) 1.2, Monocytes # (Auto) 0.6, Eosinophils # (Auto) 0.0, Basophils # (Auto) 0.2H, Immature Granulocyte # (Auto) 0.1, Prothrombin Time 14.0, INR Comment 1.0, Activated Partial Thromboplast Time 26, D-Dimer 1.80H, Sodium Level 134L, Potassium Level 4.3, Chloride Level 100, Carbon Dioxide Level 21, Anion Gap 13, Blood Urea Nitrogen 17, Creatinine 0.91, Estimat Glomerular Filtration Rate 81, BUN/Creatinine Ratio 19, Glucose Level 136H, Calcium Level 9.3, Corrected Calcium 9.2, Magnesium Level 2.1, Total Bilirubin 0.5, Aspartate Amino Transf (AST/SGOT) 20, Alanine Aminotransferase (ALT/SGPT) 12, Alkaline Phosphatase 116, Troponin I < 0.30, Pro-B-Type Natriuretic Peptide 729.2H, Total Protein 7.1, Albumin 4.1 Laboratory Tests 04/08/23 11:12 A/P-Cardiology Assessment/Admission Diagnosis Complete heart block, associated with near-syncope H/o polio and remote CVA with continuing bilat leg weakness that is more marked on the L side ?UTI Discussion and Recomendations * Pacemaker advised due to profound, symptomatic bradycardia due to complete heart block in the absence of any rate-lowering agents * I spoke at length and in detail with him and his sister regarding the indications, procedure, risks, benefits, potential complications, and alternatives of permanent pacemaker implantation. He understands all issues and wishes to proceed. Arrangements are being made * Management of chronic weakness, limited ambulation, and possible UTI is with the Hospitalist service Clinical Quality Measures AMI/AHF: ASA po Prior to arrival: NICHOLAS Calloway MD [facility] CCDS Apr 08, 2023 15:35
[2023-04-08] MEDS: NS IV 1000 ML 1,000 ML IV SCH ×2 (16:01→21:46)
[2023-04-08] MEDS ORDERED: MIDAZOLAM 5 MG/5 ML (VERSED) VIAL ONE ×2 (16:11→17:19)
[2023-04-08] MEDS ORDERED: fentaNYL INJ 100 MCG/2 ML AMP ONE ×2 (16:11→17:19)
[2023-04-08] MEDS ORDERED: LIDOCAINE 1% INJ 20 ML VIAL ONE (16:11)
[2023-04-08] MEDS ORDERED: HEParin (CATH LAB) 1,000 ML IV ONE (16:11)
[2023-04-08] MEDS ORDERED: NS IV 1000 ML 2,000 ML ONE (16:11)
[2023-04-08] MEDS ORDERED: ceFAZolin INJECTION 1,000 MG ONE (16:15)
[2023-04-08] MEDS ORDERED: RT-ALBUTEROL SULF 2.5 MG/3 ML PRE-MIX VIAL INH SCH (18:00)
[2023-04-08] MEDS ORDERED: oxyCODONE/APAP 5/325MG (PERCOCET 5) TABLET PO PRN (19:00)
[2023-04-08] MEDS ORDERED: PATIENT MAY USE OWN MEDS, ALL PO SCH (19:00)
--- NOTE | 2023-04-08 19:26 | Diagnostic Imaging Report ---
EXAMINATION: Chest (PA and lateral). CLINICAL INDICATION: 88-year-old male, pacemaker placement. COMPARISON: CT chest April 08, 2023. FINDINGS: There is a left-sided cardiac assist device with leads. Heart size and mediastinal contours are grossly unremarkable. There are aortic calcifications. There is no identified pneumothorax. There is mild atelectasis in the left lower lobe. Right upper lobe pulmonary nodule seen on prior CT chest is not well seen or evaluated radiographically. There is advanced bilateral glenohumeral arthritis. Both humeral heads are superiorly subluxed suggesting chronic full-thickness rotator cuff tendon tears. IMPRESSION: Left-sided cardiac assist device and leads without interval acute cardiopulmonary abnormality. Dictated by: Dictated on workstation # [id number]
[2023-04-08] MEDS: ceFAZolin INJECTION 1,000 MG in NS (IVPB) 50 ML IV SCH (21:45)
[2023-04-08] MEDS ORDERED: RT-ALBUTEROL SULF 2.5 MG/3 ML PRE-MIX VIAL INH PRN (22:45)
--- NOTE | 2023-04-09 02:33 | OPERATIVE REPORT ---
DATE OF SERVICE: 04/08/2023 PREOPERATIVE DIAGNOSIS: Intermittent complete heart block, associated with syncope. POSTOPERATIVE DIAGNOSIS: Intermittent complete heart block, associated with syncope. PROCEDURE: Permanent dual-chamber pacemaker implantation. ESTIMATED BLOOD LOSS: Less than 20 mL. The patient is an 88-year-old gentleman who was hospitalized with near syncope and found to have intermittent complete heart block. This is in the absence of any rate controlling agents. Dual chamber pacemaker implantation was carried out after having obtained informed consent. [facility] The left prepectoral area was prepared and draped in the usual sterile fashion. 1% lidocaine used for local anesthesia. Modified Seldinger technique was used to advance 2 guidewires into the left subclavian vein and the tips were placed in the right atrium. Sharp and blunt dissection was then used to make a pacemaker pocket. Good hemostasis was assured. The pocket was packed with gauze soaked in saline. The guidewires were used to advance sheaths and the wires were removed. The sheaths were used to advance leads and the sheaths were removed. All lead manipulation was carried out under fluoroscopy. These are active fixation leads. The ventricular lead was tested at several spots and placed close to the right ventricular apex and actively fixed. The right atrial lead was tested for several spots and fixed close to the right atrial appendage. This also, is an active fixation lead. Good capture and sensing thresholds were obtained. There was no diaphragmatic stimulation at maximum output. The gauze was removed from the pocket after the leads had been sutured to the prepectoral fascia using sleeves and 0 Ethibond. The pocket was irrigated with an antibiotic solution. The leads were attached to a dual chamber pacemaker. The pacemaker and the ends of the leads were placed in a Tyrx pouch and the apparatus was placed in the pacemaker pocket and the pocket was closed in 2 layers using 3.0 Vicryl. Through the device, P waves are measured at 2.4 millivolts and R waves are measured at 2.8 millivolts. Right atrial pacing threshold is 475 ohms. Right ventricular pacing threshold was 570 ohms. Right atrial capture threshold was 1.5 volts at 0.4 milliseconds. Right ventricular pressure threshold is 0.5 volts at 0.4 milliseconds. The pacemaker is in the DDDR mode. Mode switch is on. Lower rate is 60 beats per minute. Upper tracking rate is 130 beats per minute. The patient tolerated the procedure well. Job ID: [id number] DocumentID: [id number] Dictated Date: 04/08/2023 19:03:56 Office Rep Date: 04/09/2023 02:31:00 Dictated By: NICHOLAS FENG MD; STEPHEN; FACP; FACC;
[2023-04-09 05:25] LABS: HEMATOCRIT 30 % (40-54); HEMOGLOBIN 9.5 g/dL (13.3-17.7); MEAN CORPUSCULAR HEMOGLOBIN 34 pg (25-34); MEAN CORPUSCULAR HGB CONC 32 g/dL (32-36); MEAN CORPUSCULAR VOLUME 105 fL (80-99); MEAN PLATELET VOLUME 11.2 fL (9.0-12.2); PLATELET COUNT 190 10^3/uL (130-400); WHITE BLOOD COUNT 15.3 10^3/uL (4.3-11.0)
[2023-04-09 05:37] LABS: POTASSIUM 3.6 MMOL/L (3.6-5.0)
[2023-04-09 05:38] LABS: CALCIUM 7.7 MG/DL (8.5-10.1)
[2023-04-09 05:39] LABS: TOTAL PROTEIN 5.4 GM/DL (6.4-8.2)
[2023-04-09 05:41] LABS: BILIRUBIN,TOTAL 0.4 MG/DL (0.1-1.0)
[2023-04-09 05:43] LABS: CREATININE SERUM 0.78 MG/DL (0.60-1.30)
[2023-04-09] MEDS: NS IV 1000 ML 1,000 ML IV SCH (05:53)
[2023-04-09] MEDS: ceFAZolin INJECTION 1,000 MG in NS (IVPB) 50 ML IV SCH ×2 (06:15→14:03)
[2023-04-09] MEDS: TAMSULOSIN 0.4 MG (FLOMAX) CAP PO SCH ×2 (09:50→18:37)
--- NOTE | 2023-04-09 10:05 | Occupational Therapy Eval ---
OT Evaluation-General/PLF Medical Diagnosis Admission Date Apr 08, 2023 at 13:34 Medical Diagnosis: syncope Onset Date: Apr 08, 2023 Therapy Diagnosis Therapy Diagnosis: weakness Precautions Precautions/Isolations: Standard Precautions Comments LUE PPM restrictions Referral Referral Reason: Activity Tolerance, Self Care, Evaluation/Treatment, Strengthening/ROM Medical History Additional Medical History 88-year-old male with PMH of CVA few years ago without any obvious resident deficits, not on any medications except for vitamins, is here with complaints of syncope which has been going on intermittently for the past few weeks. In the past 1 week the number of episodes of syncope has been more frequent, with the very last 1 being today morning. Patient describes it as feeling lightheaded and then blacking out for a few seconds, and this can occur whether he is sitting down or standing up. Patient's sister has accompanied him to the ER, and reports that patient only eats 1 meal a day and does not drink much liquids at all. Patient is hard of hearing and has not brought his hearing aid with him. In the ER patient does not feel lightheaded or dizzy. Patient is able to answer all questions and follow commands without any difficulty, and also able to give a good history. Current History Foot drop, toe deformity Reviewed History: Yes Social History Home: Single Level Current Living Status: Alone Entry Into Home: Stairs With Railing Steps Into Home: 2 ADL-Prior Level of Function SCALE: Activities may be completed with or without assistive devices. 3-Fhvqkgziul-zcgwbyd completes the activity by him/herself with no assistance from a helper. 5-Set-up or Clean-up Assistance-helper sets up or cleans up; patient completes activity. Vaughn assists only prior to or following the activity. 4-Supervision or Touching Assistance-helper provides verbal cues and/or touching/steadying and/or contact guard assistance as patient completes activity. Assistance may be provided throughout the activity or intermittently. 3-Partial/Moderate Assistance-helper does LESS THAN HALF the effort. Vaughn lifts, holds or supports trunk or limbs, but provides less than half the effort. 2-Substantial/Maximal Assistance-helper does MORE THAN HALF the effort. Vaughn lifts or holds trunk or limbs and provides more than half the effort. 6-Gpmkndykt-torlaj does ALL the effort. Patient does none of the effort to complete the activity. Or, the assistance of 2 or more helpers is required for the patient to complete the activity. If activity was not attempted, code reason: 7-Patient Refused. 9-Not Applicable-not attempted and the patient did not perform the activity before the current illness, exacerbation or injury. 10-Not Attempted due to Environmental Limitations-(lack of equipment, weather restraints, etc.). 88-Not Attempted due to Medical Conditions or Safety Concerns. Self Care: Independent Functional Cognition: Independent DME/Equipment Comments built up shoes OT Current Status Subjective Agreeable to OT, difficulty w/ LUE ROM and WB, primary Left hand dominant Mental Status/Objective Patient Orientation: Person, Place, Time, Situation Attachments: Mercado Catheter, Oxygen, Telemetry Current Glasses/Contacts: Yes Hand Dominance: Left Upper Extremity ROM LUE ROM restricted w/ sling Upper Extremity Coordination Difficulty managing tasks w/o use of LUE and W/O bearing weight Upper Extremity Strength RUE WFLS, LUE NT ADL-Treatment Eating (QC): 5 (OT cut food and opened container) Oral Hygiene (QC): 5 Shower/Bathe Self (QC): 7 Upper Body Dressing (QC): 3 Lower Body Dressing (QC): 3 (difficulty w/ lifting LEs in pant legs and managiong fasteners) On/Off Footwear (QC): 1 Toileting Hygiene (QC): 4 Education OT Patient Education: Correct positioning, Exercise program, Instructions don/doff splint/brace, Modified ADL techniques, Progress toward Goal/Update tx plan, Purpose of tx/functional activities, Reviewed precautions, Rehab process, Safety issues, Transfer techniques, Use of adapted equipment Teaching Recipient: Patient Teaching Methods: Demonstration, Discussion Response to Teaching: Verbalize Understanding, Reinforcement Needed OT Molder Bench Goals Group Home Goals Eating (QC): 6 Oral Hygiene (QC): 6 Toileting Hygiene (QC): 5 Shower/Bathe Self (QC): 5 Upper Body Dressing (QC): 5 Lower Body Dressing (QC): 5 On/Off Footwear (QC): 5 1=Demonstrate adherence to instructed precautions during ADL tasks. 2=Patient will verbalize/demonstrate understanding of assistive devices/modifications for ADL. 3=Patient will improve strength/tolerance for activity to enable patient to perform ADL's. OT Education/Plan Problem List/Assessment Assessment: Decreased Activ Tolerance, Decreased Safety Aware, Decreased UE Strength, Impaired Coordination, Impaired Funct Balance, Impaired Self-Care Skills, Restricted Funct UE ROM Discharge Recommendations Plan/Recommendations: Continue POC Treatment Plan/Plan of Care Treatment,Training & Education: Yes Patient would benefit from OT for education, treatment and training to promote independence in ADL's, mobility, safety and/or upper extremity function for AD L's. Plan of Care: ADL Retraining, Functional Mobility, Group Exercise/Act as Ind, Orthotic Fitting/Training, UE Funct Exercise/Act Treatment Duration: Apr 14, 2023 Frequency: 3 times per week Estimated Hrs Per Day: .25 hour per day Agreement: Yes Rehab Potential: Good Time Start Time: 08:10 Stop Time: 08:25 DATE: Apr 09, 2023 Total Time Billed (hr/min): 15 Billed Treatment Time EVM 15 min JABARI LORD OT Apr 09, 2023 10:05
--- NOTE | 2023-04-09 10:25 | Physical Therapy Evaluation ---
PT Evaluation-General Medical Diagnosis Admission Date Apr 08, 2023 at 13:34 Medical Diagnosis: syncope/third degree heart block Onset Date: Apr 08, 2023 Therapy Diagnosis Therapy Diagnosis: debility/weakness Precautions Precautions/Isolations: Fall Prevention, Standard Precautions Referral Physician: Nati Reason for Referral: Evaluation/Treatment Medical History Pertinent Medical History: CVA Current History ER secondary to dizziness/syncope Reviewed History: Yes Social History Home: Single Level Current Living Status: Alone Prior Prior Level of Function SCALE: Activities may be completed with or without assistive devices. 7-Vuvnpzqtmi-mwqbpld completes the activity by him/herself with no assistance from a helper. 5-Set-up or Clean-up Assistance-helper sets up or cleans up; patient completes activity. Tell assists only prior to or following the activity. 4-Supervision or Touching Assistance-helper provides verbal cues and/or touching/steadying and/or contact guard assistance as patient completes activity. Assistance may be provided throughout the activity or intermittently. 3-Partial/Moderate Assistance-helper does LESS THAN HALF the effort. Tell lifts, holds or supports trunk or limbs, but provides less than half the effort. 2-Substantial/Maximal Assistance-helper does MORE THAN HALF the effort. Tell lifts or holds trunk or limbs and provides more than half the effort. 1-Yxpwkcjtb-liulnb does ALL the effort. Patient does none of the effort to complete the activity. Or, the assistance of 2 or more helpers is required for the patient to complete the activity. If activity was not attempted, code reason: 7-Patient Refused. 9-Not Applicable-not attempted and the patient did not perform the activity before the current illness, exacerbation or injury. 10-Not Attempted due to Environmental Limitations-(lack of equipment, weather restraints, etc.). 88-Not Attempted due to Medical Conditions or Safety Concerns. Bed Mobility: 6 Transfers (B,C,W/C): 6 Gait: 6 Indoor Mobility (Ambulation): Independent Prior Devices Use: Walker (4WW) PT Evaluation-Current Subjective Patient agrees to PT. s/p pacemaker placement per report. Objective Patient Orientation: Person, Time Attachments: IV ROM/Strength ROM Lower Extremities bilateral LE WFL Strength Lower Extremities 3/5 grossly bilateral LE with functional mobility Integumentary/Posture Bowel Incontinence: No Neuromuscular (Tone, Coordination, Reflexes) grossly intact Sensory Vision: Functional Hearing: Hearing Aid/Aides Transfers Lying to Sitting/Side of Bed(Q: 4 Sit to Stand (QC): 3 Chair/Kmg-tp-Hqwbo Xfer(QC): 3 Gait Mode of Locomotion: Walk Anticipated Mode of Locomotion: Walk Walk 10 feet (QC): 3 Gait Assistive Device: Walker 4 Wheeled Balance Sitting Static: Normal Sitting Dynamic: Normal Standing Static: Fair Standing Dynamic: Fair Assessment/Needs Patient will benefit from skilled PT to address functional strength and mobility to improve current LOF to safely return to home at maximum LOF. Education with patient on not using left UE to push or pull due to pacemaker placement. Patient is left handed per his report and has difficulty with following/maintaining precautions. Rehab Potential: Fair PT Feeder Operator Goals Feeder Operator Goals PT Alf Goals Time Frame: Apr 21, 2023 Roll Left & Right (QC): 6 Sit to Lying (QC): 6 Lying-Sitting on Side/Bed(QC): 6 Sit to Stand (QC): 6 Chair/Qry-hv-Dlinj Xfer(QC): 6 Walk 10 feet (QC): 5 Walk 50ft with 2 Turns (QC): 5 Walk 150 ft (QC): 5 PT Plan Problem List Problem List: Activity Tolerance, Functional Strength, Safety, Balance, Gait, Transfer, Bed Mobility Treatment/Plan Treatment Plan: Continue Plan of Care Treatment Plan: Bed Mobility, Education, Functional Activity Richard, Functional Strength, Gait, Safety, Therapeutic Exercise, Transfers Treatment Duration: Apr 21, 2023 Frequency: 6 times per week Estimated Hrs Per Day: .25 hour per day Time Time In: 810 Time Out: 825 DATE: Apr 09, 2023 Total Billed Treatment Time: 15 Total Billed Treatment 1 visit [facility] 15 min SHAYY GARCIA PT Apr 09, 2023 10:25
[2023-04-09] MEDS: cefTRIAXone IV/IM 1,000 MG in NS (IVPB) 50 ML IV SCH (12:50)
--- NOTE | 2023-04-09 12:58 | Progress Note - Cardiology ---
Cardiology SOAP Progress Note Subjective: No cp or palp or syncope or shortness of breath No n/v/d Gen weakness, chronic, unchanged Objective: I&O/Vital Signs 04/09/23 04/09/23 04/09/23 04/09/23 01:00 01:00 02:15 03:00 Pulse 92 94 63 63 Resp 16 15 B/P (MAP) 143/79 (100) 124/69 (87) 120/64 (82) Pulse Ox 99 99 O2 Delivery Room Air Room Air Room Air 04/09/23 04/09/23 04/09/23 04/09/23 04:00 04:00 05:15 06:00 Pulse 92 75 65 Resp 14 18 28 B/P (MAP) 120/62 (81) 126/64 (84) 115/63 (80) Pulse Ox 98 98 97 97 O2 Delivery Room Air Room Air Room Air Room Air 04/09/23 04/09/23 04/09/23 04/09/23 07:00 07:01 07:29 07:44 Temp 37.1 Pulse 85 80 Resp 21 B/P (MAP) 130/73 (92) Pulse Ox 95 97 O2 Delivery Room Air Room Air O2 Flow Rate 0.00 04/09/23 04/09/23 04/09/23 04/09/23 08:00 08:00 09:15 10:00 Pulse 64 71 72 Resp 36 17 20 B/P (MAP) 136/72 (93) 128/64 (85) 119/40 (66) Pulse Ox 98 95 98 98 O2 Delivery Room Air Room Air Room Air Room Air 04/09/23 04/09/23 11:00 11:23 Temp 37.2 Pulse 71 Resp 23 B/P (MAP) 135/77 (96) Pulse Ox 96 O2 Delivery Room Air 04/09/23 00:00 Intake Total 650 ml Output Total 950 ml Balance -300 ml Constitutional: AAO x 3, well-developed, well-nourished Respiratory: No accessory muscle use; chest expansion is symmetric, chest is bilaterally symmetric, other (fair, bilat air entry) Cardiovascular: regular rate-rhythm, bradycardia, S1 and S2, systolic murmur (soft EMORY at card base) Gastrointestional: No tender; soft; No guarding, No rebound; audible bowel sounds Extremities: No clubbing, No cyanosis, No significant edema Neurologic/Psychiatric: oriented x 3, other (weakness of legs, more on the L; walker by bedside) Skin: No rash on exposed areas, No ulcerations on exposed areas Results/Procedures: Labs Laboratory Tests 04/09/23 04:57: White Blood Count 15.3H, Red Blood Count 2.81L, Hemoglobin 9.5L, Hematocrit 30L, Mean Corpuscular Volume 105H, Mean Corpuscular Hemoglobin 34, Mean Corpuscular Hemoglobin Concent 32, Red Cell Distribution Width 14.9H, Platelet Count 190, Mean Platelet Volume 11.2, Sodium Level 141, Potassium Level 3.6, Chloride Level 117#H, Carbon Dioxide Level 19L, Anion Gap 5, Blood Urea Nitrogen 13, Creatinine 0.78, Estimat Glomerular Filtration Rate 86, BUN/Creatinine Ratio 17, Glucose Level 81, Calcium Level 7.7L, Corrected Calcium 8.5, Total Bilirubin 0.4, Aspartate Amino Transf (AST/SGOT) 17, Alanine Aminotransferase (ALT/SGPT) 10, Alkaline Phosphatase 83, Total Protein 5.4L, Albumin 3.0L Microbiology 04/08/23 MRSA Screen - Final, Complete MRSA not isolated A/P: Assessment: Complete heart block, associated with near-syncope - treated with dual-chamber pacemaker implantation on 04/08/23, functioning normally H/o polio and remote CVA with continuing bilat leg weakness that is more marked on the L side - managed by the Hosp svce ?UTI - managed by the [facility] Plan: * Cardiac status clinically stable * Management of chronic weakness, limited ambulation, and possible UTI is with the Hospitalist service Clinical Quality Measures AMI/AHF: ASA po Prior to arrival: NICHOLAS Calloway MD FACP [facility] CCDS Apr 09, 2023 12:58
[2023-04-09] MEDS ORDERED: FERR325T24 PO (14:08)
[2023-04-09] MEDS ORDERED: ERGO1250 PO (14:08)
[2023-04-09 15:27] VITALS: BP 128/55
--- NOTE | 2023-04-09 20:25 | History & Physical-Hospitalist ---
History of Present Illness HPI/Chief Complaint Jose L Hay is an 88 year old male who presented with near syncope. He reports it has been happening for weeks. He denies chest pain and palpitations. He denies shortness of breath and cough. He has otherwise been in his normal state of health. He denies fevers. He denies abdominal pain. He denies nausea. He does report urinary frequency. He denies dysuria. Source: patient Exam Limitations: no limitations Date Seen 04/09/23 Time Seen by a Provider: 09:00 Attending Physician Nikos Avila DO PCP Admitting Physician: Alda Damian MD Attending Physician: Aly Knight MD Referring Physician Date of Admission Apr 08, 2023 at 13:34 Home Medications & Allergies Home Medications Reviewed patient Home Medication Reconciliation performed by pharmacy medication reconciliations installer technician and/or nursing. Patients Allergies have been reviewed. Allergies Allergies Coded Allergies No Known Drug Allergies (Unverified02/18/22) Past Ppdktmm-Uguhdj-Pygtko Hx Patient Social History Tobacco Use?: No Use of E-Cig and/or Vaping dev: No Substance use?: No Alcohol Use?: No Pt feels they are or have been: No Immunizations Up To Date First/Initial COVID19 Vaccinat: Not currently vaccinated Second COVID19 Vaccination Faizan: Not currently vaccinated Current Status Advance Directives: No Advance Directive Location: Family to bring in copy Communicates: Verbally Primary Language: Luxembourger Preferred Spoken Language: Luxembourger Is interpretation needed?: No Implanted or Applied Medical D: None Family Medical History No Pertinent Family Hx Review of Systems Constitutional: dizziness Respiratory: no symptoms reported Cardiovascular: no symptoms reported Gastrointestinal: no symptoms reported Physical Exam Physical Exam Vital Signs Vital Signs - First Documented 04/08/23 04/08/23 04/09/23 11:25 15:31 07:29 Temp 36.4 Pulse 36 Resp 16 B/P (MAP) 138/46 (76) Pulse Ox 99 O2 Delivery Room Air O2 Flow Rate 0.00 FiO2 21 Capillary Refill : Less Than 3 Seconds Height, Weight, BMI Height: '" Weight: lbs. oz. kg; 18.82 BMI Method: General Appearance: No Apparent Distress, Thin HEENT: PERRL/EOMI, Pharynx Normal Neck: Normal Inspection, Supple Respiratory: Lungs Clear, No Respiratory Distress Cardiovascular: Regular Rate, Rhythm, No Murmur Gastrointestinal: Normal Bowel Sounds, Soft Extremity: Normal Inspection, No Pedal Edema Neurologic/Psychiatric: Alert, Oriented x3, Normal Mood/Affect Skin: Normal Color, Warm/Dry Results Results/Procedures Labs Laboratory Tests 04/08/23 11:12 04/09/23 04:57 Patient resulted labs reviewed. Imaging: Reviewed Imaging Report Assessment/Plan Admission Diagnosis Complete heart block Admission Status: Inpatient Order (span 2 midnights) Reason for Inpatient Admission: Pacemaker placement Assessment and Plan Complete heart block s/p pacemaker Cardiology consulted s/p pacemaker 04/08 Transfer to medical floor UTI Culture pending Juanepncstephanie Debility PT/OT IRU evaluation Critical Care Critically Ill Patient Diagnosis/Problems Diagnosis/Problems (1) Third degree heart block Status: Acute (2) Syncope Status: Acute Qualifiers: Syncope type: unspecified Qualified Codes: R55 - Syncope and collapse (3) UTI (urinary tract infection) Status: Acute (4) Debility Status: Acute Clinical Quality Measures AMI/AHF: ASA po Prior to arrival: ALY Pham MD Apr 09, 2023 20:25
[2023-04-09 20:59] VITALS: BP 119/68
[2023-04-09] MEDS: ENOXAPARIN INJECTION 30 MG/0.3 ML SYR SQ SCH ×2 (21:31→21:33)
[2023-04-10 00:25] VITALS: BP 138/74
[2023-04-10 04:01] VITALS: BP 145/72
[2023-04-10 07:13] VITALS: BP 144/73
--- NOTE | 2023-04-10 10:25 | Physical Therapy Daily Note ---
PT Daily Note-Current Subjective States that he will walk. Pain Section J - Health Conditions 1. Rarely or not at all 2. Occasionally 3. Frequently 4. Almost constantly 8. Unable to answer Pain Effect on Sleep: 1 Pain Interference with Therapy: 1 Pain Interference w/Day-to-Day: 1 Transfers SCALE: Activities may be completed with or without assistive devices. 3-Wjcsbcybts-zjtyomm completes the activity by him/herself with no assistance from a helper. 5-Set-up or Clean-up Assistance-helper sets up or cleans up; patient completes activity. [place] assists only prior to or following the activity. 4-Supervision or Touching Assistance-helper provides verbal cues and/or touching/steadying and/or contact guard assistance as patient completes activity. Assistance may be provided throughout the activity or intermittently. 3-Partial/Moderate Assistance-helper does LESS THAN HALF the effort. [place] lifts, holds or supports trunk or limbs, but provides less than half the effort. 2-Substantial/Maximal Assistance-helper does MORE THAN HALF the effort. [place] lifts or holds trunk or limbs and provides more than half the effort. 7-Zxybqdbge-quesrm does ALL the effort. Patient does none of the effort to complete the activity. Or, the assistance of 2 or more helpers is required for the patient to complete the activity. If activity was not attempted, code reason: 7-Patient Refused. 9-Not Applicable-not attempted and the patient did not perform the activity before the current illness, exacerbation or injury. 10-Not Attempted due to Environmental Limitations-(lack of equipment, weather restraints, etc.). 88-Not Attempted due to Medical Conditions or Safety Concerns. Sit to Stand (QC): 5 Weight Bearing Full Weight Bearing Full Weight Bearing Gait Training Does the Patient Walk?: Yes Distance: 100' Walk 10 feet (QC): 4 Walk 50 ft with 2 Turns(QC): 4 Gait Persons Needed: 1 Gait Assistive Device: Walker 4 Wheeled Assessment Current Status: Excellent Progress Patient did well with gait but does have some instability. PT Longterm Goals Fire Protection Engineering Technician Goals PT Fire Protection Engineering Technician Goals Time Frame: Apr 21, 2023 Roll Left & Right (QC): 6 Sit to Lying (QC): 6 Lying-Sitting on Side/Bed(QC): 6 Sit to Stand (QC): 6 Chair/Elj-yw-Vcssv Xfer(QC): 6 Walk 10 feet (QC): 5 Walk 50ft with 2 Turns (QC): 5 Walk 150 ft (QC): 5 PT Plan Treatment/Plan Treatment Plan: Continue Plan of Care Treatment Plan: Bed Mobility, Education, Functional Activity Richard, Functional Strength, Gait, Safety, Therapeutic Exercise, Transfers Treatment Duration: Apr 21, 2023 Frequency: 6 times per week Estimated Hrs Per Day: .25 hour per day Time Time In: 1005 Time Out: 1020 DATE: Apr 10, 2023 Total Billed Treatment Time: 15 Total Billed Treatment 1, GT x 15' HALIE ELIAS PT Apr 10, 2023 10:25
[2023-04-10 11:04] VITALS: BP 167/86
[2023-04-10] MEDS: cefTRIAXone IV/IM 1,000 MG in NS (IVPB) 50 ML IV SCH (13:04)
--- NOTE | 2023-04-10 14:43 | Progress Note - Hospitalist ---
Subjective HPI/CC On Admission Date Seen by Provider: Apr 10, 2023 Time Seen by Provider: 11:15 Jose L Hay is an 88 year old male who presented with near syncope. He reports it has been happening for weeks. He denies chest pain and palpitations. He denies shortness of breath and cough. He has otherwise been in his normal state of health. He denies fevers. He denies abdominal pain. He denies nausea. He does report urinary frequency. He denies dysuria. Subjective/Events-last exam He is feeling good. He worked with therapy today. Objective Exam Vital Signs Vital Signs Date Time Temp Pulse Resp B/P (MAP) Pulse Ox O2 Delivery O2 Flow Rate FiO2 04/10/23 11:04 36.7 75 18 167/86 (113) 98 Room Air 04/10/23 08:04 0.00 04/08/23 15:31 21 Capillary Refill : Less Than 3 Seconds General Appearance: No Apparent Distress, Thin Respiratory: Lungs Clear, No Respiratory Distress Cardiovascular: Regular Rate, Rhythm, No Murmur Gastrointestinal: Normal Bowel Sounds, Soft Extremity: Normal Inspection, No Pedal Edema Neurologic/Psychiatric: Alert, Normal Mood/Affect Skin: Normal Color, Warm/Dry Results/Procedures Lab Patient resulted labs reviewed. Imaging: Reviewed Imaging Report Assessment/Plan Assessment and Plan Assess & Plan/Chief Complaint Complete heart block s/p pacemaker Cardiology consulted s/p pacemaker 04/08 UTI Culture pending Rocephin Debility PT/OT Referral sent to [facility] Diagnosis/Problems Diagnosis/Problems (1) Third degree heart block Status: Acute (2) Syncope Status: Acute Qualifiers: Syncope type: unspecified Qualified Codes: R55 - Syncope and collapse (3) UTI (urinary tract infection) Status: Acute (4) Debility Status: Acute Clinical Quality Measures AMI/AHF: ASA po Prior to arrival: ALY Pham MD Apr 10, 2023 14:43
[2023-04-10 15:10] VITALS: BP 137/69
--- NOTE | 2023-04-10 17:00 | Progress Note - Cardiology ---
Cardiology SOAP Progress Note Subjective: No cp or palp or syncope or shortness of breath No n/v/d No focal weakness No swelling Objective: I&O/Vital Signs 04/10/23 04/10/23 04/10/23 04/10/23 07:13 08:00 08:04 11:04 Temp 36.4 36.7 Pulse 67 75 Resp 18 18 B/P (MAP) 144/73 (96) 167/86 (113) Pulse Ox 99 98 98 O2 Delivery Room Air Room Air Room Air Room Air O2 Flow Rate 0.00 04/10/23 15:10 Temp 37.0 Pulse 69 Resp 18 B/P (MAP) 137/69 (91) Pulse Ox 100 O2 Delivery Room Air O2 Flow Rate 0.00 04/10/23 00:00 Intake Total 570 ml Output Total 390 ml Balance 180 ml Device Insertion Site: without hematoma Swelling: without swelling Constitutional: AAO x 3, well-developed, well-nourished Respiratory: No accessory muscle use; chest expansion is symmetric, chest is bilaterally symmetric, other (fair, bilat air entry) Cardiovascular: regular rate-rhythm, bradycardia, S1 and S2, systolic murmur (soft EMORY at card base) Gastrointestional: No tender; soft; No guarding, No rebound; audible bowel sounds Extremities: No clubbing, No cyanosis, No significant edema Neurologic/Psychiatric: oriented x 3, other (weakness of legs, more on the L; walker by bedside) Skin: No rash on exposed areas, No ulcerations on exposed areas Results/Procedures: Labs Microbiology 04/08/23 MRSA Screen - Final, Complete MRSA not isolated 04/08/23 Urine Culture - Final, Complete Gram Pos Mixed Bacterial [place] See Comments Laboratory Tests 04/09/23 04:57 A/P: Assessment: Complete heart block, associated with near-syncope - treated with dual-chamber pacemaker implantation on 04/08/23, functioning normally H/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
[2023-04-10] MEDS: TAMSULOSIN 0.4 MG (FLOMAX) CAP PO SCH (17:35)
[2023-04-10 19:45] VITALS: BP 165/78
[2023-04-11] VITALS: BP 149/72
[2023-04-11 03:21] VITALS: BP 122/57
[2023-04-11 06:35] VITALS: BP 122/57
[2023-04-11 07:02] VITALS: BP 135/62
--- NOTE | 2023-04-11 09:55 | Progress Note - Cardiology ---
Cardiology SOAP Progress Note Objective: I&O/Vital Signs 04/11/23 04/11/23 04/11/23 04/11/23 00:00 03:21 06:35 07:02 Temp 36.9 36.5 36.5 36.3 Pulse 62 91 91 74 Resp 16 16 20 B/P (MAP) 149/72 (97) 122/57 (78) 135/62 (86) Pulse Ox 97 96 96 98 O2 Delivery Room Air Room Air Room Air O2 Flow Rate 0.00 0.00 04/11/23 08:00 Pulse Ox 98 O2 Delivery Room Air O2 Flow Rate 0.00 04/10/23 23:59 Intake Total 890 ml Balance 890 ml Device Insertion Site: without hematoma Swelling: without swelling Constitutional: AAO x 3, well-developed, well-nourished Respiratory: No accessory muscle use; chest expansion is symmetric, chest is bilaterally symmetric, other (fair, bilat air entry) Cardiovascular: regular rate-rhythm, bradycardia, S1 and S2, systolic murmur (soft EMORY at card base) Gastrointestional: No tender; soft; No guarding, No rebound; audible bowel sounds Extremities: No clubbing, No cyanosis, No significant edema Neurologic/Psychiatric: oriented x 3, other (weakness of legs, more on the L; walker by bedside) Skin: No rash on exposed areas, No ulcerations on exposed areas Results/Procedures: Labs Microbiology 04/08/23 MRSA Screen - Final, Complete MRSA not isolated 04/08/23 Urine Culture - Final, Complete Gram Pos Mixed Bacterial [place] See Comments A/P: Assessment: Complete heart block, associated with near-syncope - treated with dual-chamber pacemaker implantation on 04/08/23, functioning normally H/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 Edges approx; steri-strips in place; mild to mod amt of bruising; no redness; no drainage. Applied 4x 4 with paper tape to site. Discussed care if device site to which he verbalized understanding. Clinical Quality Measures AMI/AHF: ASA po Prior to arrival: LEXIS Cordoba [facility] Apr 11, 2023 09:55
--- NOTE | 2023-04-11 10:27 | Occupational Ther Daily Note ---
OT Current Status-Daily Note Subjective Patient ambulating from bathroom unattended, intervention for assistance provided. Patient using 4ww and LUE dangles from sling to grasp 4ww brake/handles. PCT arrives and sets chair alarm Mental Status/Objective Patient Orientation: Person, Place ([facility], [place] sling ADL-Treatment Therapy Code Descriptions/Definitions Functional [place] Measure: 0=Not Assessed/NA 4=Minimal Assistance 1=Total Assistance 5=Supervision or Setup 2=Maximal Assistance 6=Modified [place] 3=Moderate Assistance 7=Complete IndependenceSCALE: Activities may be completed with or without assistive devices. 9-Kalquxypor-izmujui completes the activity by him/herself with no assistance from a helper. 5-Set-up or Clean-up Assistance-helper sets up or cleans up; patient completes activity. [place] assists only prior to or following the activity. 4-Supervision or Touching Assistance-helper provides verbal cues and/or touching/steadying and/or contact guard assistance as patient completes activity. Assistance may be provided throughout the activity or intermittently. 3-Partial/Moderate Assistance-helper does LESS THAN HALF the effort. [place] lifts, holds or supports trunk or limbs, but provides less than half the effort. 2-Substantial/Maximal Assistance-helper does MORE THAN HALF the effort. [place] lifts or holds trunk or limbs and provides more than half the effort. 8-Otciqrwyl-dozmrf does ALL the effort. Patient does none of the effort to complete the activity. Or, the assistance of 2 or more helpers is required for the patient to complete the activity. If activity was not attempted, code reason: 7-Patient Refused. 9-Not Applicable-not attempted and the patient did not perform the activity before the current illness, exacerbation or injury. 10-Not Attempted due to Environmental Limitations-(lack of equipment, weather restraints, etc.). 88-Not Attempted due to Medical Conditions or Safety Concerns. Eating (QC): 6 Oral Hygiene (QC): 5 Upper Body Dressing (QC): 4 Lower Body Dressing (QC): 4 On/Off Footwear: 4 Other Treatment BUE ther ex performed in recliner while sitting for sustaining strength, LUE foam block for hand, wrist and elbow d/t PPM precautions Education OT Patient Education: Correct positioning, Exercise program, Instructions don/doff splint/brace, Modified ADL techniques, Progress toward Goal/Update tx plan, Purpose of tx/functional activities, Reviewed precautions, Rehab process, Safety issues, Transfer techniques, Use of adapted equipment Teaching Recipient: Patient Teaching Methods: Demonstration, Discussion Response to Teaching: Verbalize Understanding, Reinforcement Needed OT Sil[place] Soaker Goals Silk Soaker Goals Eating (QC): 6 Oral Hygiene (QC): 6 Toileting Hygiene (QC): 5 Shower/Bathe Self (QC): 5 Upper Body Dressing (QC): 5 Lower Body Dressing (QC): 5 On/Off Footwear (QC): 5 1=Demonstrate adherence to instructed precautions during ADL tasks. 2=Patient will verbalize/demonstrate understanding of assistive devices/modifications for ADL. 3=Patient will improve strength/tolerance for activity to enable patient to perform ADL's. OT Education/Plan Problem List/Assessment Assessment: Decreased Activ Tolerance, Decreased Safety Aware, Decreased UE Strength, Impaired Cognition (vs hard of hearing), Impaired Self-Care Skills, Restricted Funct UE ROM Discharge Recommendations Plan/Recommendations: Continue POC Treatment Plan/Plan of Care Patient would benefit from OT for education, treatment and training to promote independence in ADL's, mobility, safety and/or upper extremity function for ADL's. Plan of Care: ADL Retraining, Functional Mobility, Group Exercise/Act as Ind, Orthotic Fitting/Training, UE Funct Exercise/Act Treatment Duration: Apr 14, 2023 Frequency: 3 times per week Estimated Hrs Per Day: .25 hour per day Agreement: Yes Rehab Potential: Fair Time Start Time: 09:30 Stop Time: 09:53 DATE: Apr 11, 2023 Total Time Billed (hr/min): 23 Billed Treatment Time ADL 23 min JABARI LORD OT Apr 11, 2023 10:27
--- NOTE | 2023-04-11 10:56 | Physical Therapy Daily Note ---
PT Daily Note-Current Subjective Pt found seated in recliner upon entry. Agreed to PT. Pt wears sling on L arm. States that he is not having any pain today. Pain Section J - Health Conditions 1. Rarely or not at all 2. Occasionally 3. Frequently 4. Almost constantly 8. Unable to answer Pain Effect on Sleep: 1 Pain Interference with Therapy: 1 Pain Interference w/Day-to-Day: 1 Mental Status Patient Orientation: Confused Transfers SCALE: Activities may be completed with or without assistive devices. 4-Dmmqhywjrm-azdglrk completes the activity by him/herself with no assistance from a helper. 5-Set-up or Clean-up Assistance-helper sets up or cleans up; patient completes activity. [place] assists only prior to or following the activity. 4-Supervision or Touching Assistance-helper provides verbal cues and/or touching/steadying and/or contact guard assistance as patient completes activity. Assistance may be provided throughout the activity or intermittently. 3-Partial/Moderate Assistance-helper does LESS THAN HALF the effort. [place] lifts, holds or supports trunk or limbs, but provides less than half the effort. 2-Substantial/Maximal Assistance-helper does MORE THAN HALF the effort. [place] lifts or holds trunk or limbs and provides more than half the effort. 7-Pvdwziioe-fmdlej does ALL the effort. Patient does none of the effort to complete the activity. Or, the assistance of 2 or more helpers is required for the patient to complete the activity. If activity was not attempted, code reason: 7-Patient Refused. 9-Not Applicable-not attempted and the patient did not perform the activity before the current illness, exacerbation or injury. 10-Not Attempted due to Environmental Limitations-(lack of equipment, weather restraints, etc.). 88-Not Attempted due to Medical Conditions or Safety Concerns. Sit to Stand (QC): 4 Pt CGA /c sit to stand transfers for safety due to strength and balance deficits. Weight Bearing Full Weight Bearing Full Weight Bearing Gait Training Does the Patient Walk?: Yes Distance: 120 Walk 10 feet (QC): 4 Walk 50 ft with 2 Turns(QC): 4 Gait Persons Needed: 1 Gait Assistive Device: FWW Pt ambulates /c FWW and CGA for safety due to strength and balance deficits. Ambulates up to 120 feet. Displays slight unsteadiness /c ambulation but does not lose balance. Assessment Current Status: Good Progress Pt displays good tolerance to gait training but does display signs of fatigue post treatment. Pt able to ambulate up to 120 feet before requiring a seated rest break. Ambulates /c use of a FWW and CGA. CGA required for sit to stand transfers. Continue to progress per POC to improve strength, endurance, and functional ability. PT Penitentiary Goals Penitentiary Goals PT Assistant Manager/[place] Goals Time Frame: Apr 21, 2023 Roll Left & Right (QC): 6 Sit to Lying (QC): 6 Lying-Sitting on Side/Bed(QC): 6 Sit to Stand (QC): 6 Chair/Ctk-ff-Ftvlr Xfer(QC): 6 Walk 10 feet (QC): 5 Walk 50ft with 2 Turns (QC): 5 Walk 150 ft (QC): 5 PT Plan Treatment/Plan Treatment Plan: Continue Plan of Care Treatment Plan: Bed Mobility, Education, Functional Activity Richard, Functional Strength, Gait, Safety, Therapeutic Exercise, Transfers Treatment Duration: Apr 21, 2023 Frequency: 6 times per week Estimated Hrs Per Day: .25 hour per day Time Time In: 1000 Time Out: 1011 DATE: Apr 11, 2023 Total Billed Treatment Time: 11 Total Billed Treatment 1 visit GT x 1 FRANCESCA AKBAR TAX COMPLIANCE AGENT Apr 11, 2023 10:56
[2023-04-11] MEDS ORDERED: TMSL.4C PO (11:13)
[2023-04-11] MEDS ORDERED: ERGO1250 PO (11:13)
[2023-04-11] MEDS ORDERED: FERR325T24 PO (11:13)
--- NOTE | 2023-04-11 11:15 | Discharge Inst-Skilled Nursing ---
Discharge Inst-Skilled NF Consult/Follow Up/Orders Follow Up Appt.: Margarita 2 weeks Ricky 4 weeks Skilled NF Admit to: [facility] Certification (SNF) I certify that SNF services are required to be given on an inpatient basis because of the above named patient's need for jail care on a continuing basis for the conditions(s) for which he/she was receiving inpatient hospital services prior to his/her transfer to the SNF. Senior Living Facility Order: Nursing Services, Dredge Pump Operator-Evaluate & Treat, Physical Therapy-Evaluate & Treat Oxygen Delivery Method: Room Air Discharge Diet: Low Sodium Diet Resuscitation Status: Full Code New & Resume Previous Orders Aly Link Apr 11, 2023 11:14 ALY LINK MD Apr 11, 2023 11:15
[2023-04-11] MEDS: cefTRIAXone IV/IM 1,000 MG in NS (IVPB) 50 ML IV SCH (11:53)
[2023-04-11 12:01] VITALS: BP 126/61
[2023-04-11] MEDS ORDERED: ATROPINE INJECTION 1 MG/10 ML SYR (ABBOTT) INJ ONE (13:49)
[2023-04-11 13:50] VITALS: BP 126/61
--- NOTE | 2023-04-11 14:44 | Conscious Sedation/ASA ---
Moderate Sedation PreProcedure ASA Score Airway Lungs Heart ASA score ASA 1: a normal healthy patient ASA 2: a patient with a mild systemic disease (mid diabetes, controlled hypertension, obesity ASA 3: a patient with a severe systemic disease that limits activity (angina, COPD, prior Myocardial infarction) ASA 4: a patient with an incapacitating disease that is a constant threat to life (CHF, renal failure) ASA 5: a moribund patient not expected to survive 24 hrs. (ruptured aneurysm) ASA 6: a declared brain- patient whose organs are being harvested. For emergent operations, add the letter E after the classification Sedation Plan The patient is an appropriate candidate to undergo the planned procedure, sedation, and anesthesia. The patient immediately re-assessed prior to indication. SABA,OctApr 11, 2023 14:43
--- NOTE | 2023-04-11 17:48 | Discharge Summary ---
Discharge Summary Hospital Course Problems/Dx: (1) Third degree heart block Status: Acute (2) Syncope Status: Acute Qualifiers: Qualified Codes: R55 - Syncope and collapse (3) Debility Status: Acute (4) BPH (benign prostatic hyperplasia) Status: Acute Qualifiers: Qualified Codes: N40.1 - Benign prostatic hyperplasia with lower urinary tract symptoms; R35.0 - Frequency of micturition Hospital Course Date of Admission: Apr 08, 2023 at 13:34 Admission Diagnosis : Complete heart block Family Physician/Provider: Cliff Date of Discharge: 04/11/23 Discharge Diagnosis: Complete heart block Hospital Course: Jose L Hay is an 88 year old male who presented with near syncope and was admitted with complete heart block. Cardiology was consulted and assisted with his care. He had a permanent pacemaker placed. His bradycardia resolved. He had symptoms consistent with BPH. He was started on Flomax. There was concern for a UTI, but urine culture was not consistent with infection. He was debilitated. He was discharged to [facility] in stable condition. He should follow up with Dr. Avila in a week or two. He should follow up with Cardiology as scheduled. Labs and Pending Lab Test: Microbiology 04/08/23 MRSA Screen - Final, Complete MRSA not isolated 04/08/23 Urine Culture - Final, Complete Gram Pos Mixed Bacterial [place] See Comments Home Meds Active Flomax (Tamsulosin HCl) 0.4 Mg Cap 0.4 Mg PO DAILY@1800 30 Days Ferosul (Ferrous Sulfate) 325 Mg (65 Mg Iron) Tablet 325 Mg PO DAILY 30 Days Vitamin D2 (Ergocalciferol (Vitamin D2)) 1,250 Mcg (28303 Unit) Capsule 1,250 Mcg PO WEEKLY 28 Days Assessment/Pt Instructions See instructions Discharge Planning: >30 minutes discharge planning Discharge Instructions Discharge Diet: Low Sodium Diet Activity as Tolerated: Yes Consultations Cardiology Discharge Physical Examination Vital Signs Vital Signs Date Time Temp Pulse Resp B/P (MAP) Pulse Ox O2 Delivery O2 Flow Rate FiO2 04/11/23 13:50 36.4 69 20 126/61 100 Room Air 0.00 04/08/23 15:31 21 General Appearance: No Apparent Distress, Thin Respiratory: Lungs Clear, No Respiratory Distress Cardiovascular: Regular Rate, Rhythm, No Murmur Gastrointestinal: Normal Bowel Sounds, Soft Extremity: Normal Inspection, No Pedal Edema Skin: Normal Color, Warm/Dry Neurologic/Psychiatric: Alert, No Motor/Sensory Deficits Allergies: Coded Allergies: No Known Drug Allergies (Unverified , 02/18/22) Copy Copies To 1: HERNANDEZ AVILA DO Discharge Summary Date of Admission Apr 08, 2023 at 13:34 Date of Discharge Apr 11, 2023 at 13:50 Discharge Date: Apr 11, 2023 Discharge Time: 13:50 Admission Diagnosis Complete heart block Consults/Procedures Consulations Cardiology Procedures Pacemaker Discharge Diagnosis Complete heart block s/p pacemaker BPH Debility (1) Third degree heart block Status: Acute (2) Syncope Status: Acute Qualifiers: Qualified Codes: R55 - Syncope and collapse (3) Debility Status: Acute (4) BPH (benign prostatic hyperplasia) Status: Acute Qualifiers: Qualified Codes: N40.1 - Benign prostatic hyperplasia with lower urinary tract symptoms; R35.0 - Frequency of micturition Clinical Quality Measures AMI/AHF: ASA po Prior to arrival: ALY Pham MD Apr 11, 2023 17:48
== END 2023-04-11 13:50 | DRG 243 ==
LOC: EDUNIT# 10:48 → ER FS 10:52 → CSD 13:34 → ICU 13:44 → 4TH 04-09 13:53
PROVIDERS: ADMIT Family Medicine; ATTEND Internal Medicine
PROC: 02H63JZ Insertion of Pacemaker Lead into Right Atrium, Percutaneous Approach (ICD-10-PCS; principal; 2023-04-08)
PROC: 0JH606Z Insertion of Pacemaker, Dual Chamber into Chest Subcutaneous Tissue and Fascia, Open Approach (ICD-10-PCS; 2023-04-08)
PROC: 02HK3JZ Insertion of Pacemaker Lead into Right Ventricle, Percutaneous Approach (ICD-10-PCS; 2023-04-08)
DX: I44.2 Atrioventricular block, complete (principal); G82.20 Paraplegia, unspecified; R91.1 Solitary pulmonary nodule; J32.0 Chronic maxillary sinusitis; I69.361 Other paralytic syndrome following cerebral infarction affecting right dominant side; Z86.12 Personal history of poliomyelitis; H91.90 Unspecified hearing loss, unspecified ear; Z97.4 Presence of external hearing-aid; N40.0 Benign prostatic hyperplasia without lower urinary tract symptoms; Z28.310 Unvaccinated for COVID-19; Z28.9 Immunization not carried out for unspecified reason; Z79.891 Long term (current) use of opiate analgesic; Z79.899 Other long term (current) drug therapy
CPT/HCPCS: 33208; 36415; 70450; 71045; 71046; 71275; 80053; 81000; 83735; 83880; 84484; 85025; 85027; 85379; 85610; 85730; 87081; 87088; 93005; G0378; Q9967